=== PATIENT | female | born 1970 | race Caucasian/White ===

== ENCOUNTER 2017-12-04 09:56 | Emergency (ER) | payer SELFPAY ==
[~2017-12-04] VITALS: Ht 165.1 cm; Wt 99.3 kg
--- OUTSIDE RECORDS SUMMARY | 2017-12-04 10:03 | XMS REPORT ---
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 Problem Anxiety state, unspecified F41.1 Active 541204738 Problem Rheumatoid arthritis involving multiple sites, unspecified rheumatoid factor presence M06.9 Active 487534007 Problem Osteoarthritis, unspecified osteoarthritis type, unspecified site M19.90 Active 392945913 ALLERGIES Substance Reaction Event Type Date Status Hydrocodone-Acetaminophen nausea and vomiting Drug Allergy Nov, Active Latex itching Non Drug Allergy Nov, Active ENCOUNTERS Encounter Location Date Diagnosis [place] [address] [place] [address]658- 5477 Dec, [place] [address] [place] [id number] [place] [address] 11348- 4059 Nov, Strain of right shoulder, subsequent encounter S46.911D [place] [address] [place] [address] 51706- 4868 Oct, Right otitis media, unspecified otitis media type H66.91 [place] [address] [place] [id number] [place] [address] 02129[address] 9136 18 Oct, 2017 URI with cough and congestion J06.9 [place] [address] [place] [address] 74662- 9608 Oct, Osteoarthritis, unspecified osteoarthritis type, unspecified site M19.90 [place] [address] [address] 12 Oct, 2017 Strain of right shoulder, initial encounter S46.911A and Rheumatoid arthritis flare M06.9 [place] [address] [place] [id number] [place] [address] 98423- 3153 06 Oct, 2017 Osteoarthritis, unspecified osteoarthritis type, unspecified site M19.90 ; Peripheral edema R60.9 ; Chronic pain syndrome G89.4 and Rheumatoid arthritis involving multiple sites, unspecified rheumatoid factor presence M06.9 [place] [address] [place] [id number] [place] [address] 00781- 5661 16 Sep, 2017 Bilateral lower extremity edema R60.0 ; Osteoarthritis, unspecified osteoarthritis type, unspecified site M19.90 and Methamphetamine use disorder, 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 [place] [address] [place] [address] 32642- 6803 Sep, [facility] [address] [place] [address] Jul, Methamphetamine use disorder, 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 [facility] [address] [place] [address] Jul, [address] [address] Jul, [facility] [address] [place] [address] May, [facility] [address] [place] [address] May, Methamphetamine use disorder, moderate F15.20 and Alcohol use disorder F10.99 [facility] [address] [place] [address] May, Alcohol use disorder F10.99 and Methamphetamine use disorder, moderate F15.20 [facility] [address] [place] [address] May, Methamphetamine use disorder, moderate F15.20 and Alcohol use disorder F10.99 [facility] [address] [place] [address] Apr, Methamphetamine use disorder, moderate F15.20 and Alcohol use disorder F10.99 [place] [address] [place] [address] Apr, Methamphetamine use disorder, moderate F15.20 ; Anxiety state, unspecified F41.1 and Alcohol use disorder F10.99 [facility] [address] Apr, Alcohol use disorder F10.99 and Methamphetamine use disorder, moderate F15.20 [facility] [address] Mar, Alcohol use disorder F10.99 and Methamphetamine use disorder, moderate F15.20 [place] [address] [place] [id number] [place] [address] 2159 Mar, Methamphetamine use disorder, moderate F15.20 ; Anxiety state, unspecified F41.1 and Alcohol use disorder F10.99 [place] [address] [place] [id number] [place] [address] Mar, [place] [address] [place] [id number] [place] [address]34 Mar, [place] [address] [place] [id number] [place] [address] 135728- 2826 Apr, [place] [address] [place] [id number] [place] [address] 431 Apr, IMMUNIZATIONS No Known Immunizations SOCIAL HISTORY Never Assessed REASON FOR VISIT Pain (acute) shoulder-twooden,RMA, PT Still complaining of her right shoulder is still bothering her and it really hurts at night when she is lying down PLAN OF CARE Activity Details Follow Up prn Reason: VITAL SIGNS Height 65 in 2017-11-27 Weight 217.9 lbs 2017-11-27 Temperature 98.4 degrees Fahrenheit 2017-11-27 Heart Rate 91 bpm 2017-11-27 Respiratory Rate 20 2017-11-27 Oximetry on room air:96 % 2017-11-27 BMI 36.26 kg/m2 2017-11-27 Blood pressure systolic 130 mmHg 2017-11-27 Blood pressure diastolic 84 mmHg 2017-11-27 MEDICATIONS Medication Instructions Dosage Frequency Start Date End Date Duration Status Meloxicam 15 MG Orally Once a day 1 tablet 24h 16 Sep, 2017 11 Dec, 2018 28 days Active Remeron 15 MG Orally Once a day 1 tablet at bedtime 24h 30 day(s) Active RESULTS No Results PROCEDURES No Known procedures INSTRUCTIONS MEDICATIONS ADMINISTERED No Known Medications MEDICAL (GENERAL) HISTORY Type Description Date Medical History degenerative bone disease by Medical History Anxiety Surgical History Carpel tunnel both hands Surgical History C-sections x 4 Surgical History Hysterectomy 2009 Hospitalization History surgeries Hospitalization History Jean-Paul Dickerson drip for her back 2002
--- OUTSIDE RECORDS SUMMARY | 2017-12-04 10:03 | XMS REPORT ---
Author Author MESSI GRIMM Organization 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 Problem Anxiety state, unspecified F41.1 Active 159995173 Problem Rheumatoid arthritis involving multiple sites, unspecified rheumatoid factor presence M06.9 Active 856752386 Problem Osteoarthritis, unspecified osteoarthritis type, unspecified site M19.90 Active 055293842 ALLERGIES Substance Reaction Event Type Date Status Hydrocodone-Acetaminophen nausea and vomiting Drug Allergy Oct, Active Latex itching Non Drug Allergy Oct, Active ENCOUNTERS Encounter Location Date Diagnosis [place] [address] [place] [id number] [place] [address] 79891- 8128 Oct, Right otitis media, unspecified otitis media type H66.91 [facility] [address] [place] [id number] [place] [address] 11445- 6945 Oct, URI with cough and congestion J06.9 [facility] [address] [place] [id number] [place] [address] 63620- 8170 Oct, Osteoarthritis, unspecified osteoarthritis type, unspecified site M19.90 [facility] [address] [place] [id number] [place] [address] 66936- 6949 Oct, Strain of right shoulder, initial encounter S46.911A and Rheumatoid arthritis flare M06.9 [facility] [address] [place] [address] [id number] [place] [address] 68468- 2688 Oct, Osteoarthritis, unspecified osteoarthritis type, unspecified site M19.90 ; Peripheral edema R60.9 ; Chronic pain syndrome G89.4 and Rheumatoid arthritis involving multiple sites, unspecified rheumatoid factor presence M06.9 [place] [address] [place] [address] 35946- 4504 Sep, Bilateral lower extremity edema R60.0 ; Osteoarthritis, unspecified osteoarthritis type, unspecified site M19.90 and Methamphetamine use disorder, 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 [address]- [address]85 Sep, [facility] [address] [place] [address] Jul, Methamphetamine use disorder, 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 [facility] [address] [place] [address] Jul, [address] [address] Jul, [facility] [address] [place] [address] May, [facility] [address] [place] [address] May, Methamphetamine use disorder, moderate F15.20 and Alcohol use disorder F10.99 [facility] [address] [place] [address] May, Alcohol use disorder F10.99 and Methamphetamine use disorder, moderate F15.20 [facility] [address] [place] [address] May, Methamphetamine use disorder, moderate F15.20 and Alcohol use disorder F10.99 [facility] [address] [place] [address] Apr, Methamphetamine use disorder, moderate F15.20 and Alcohol use disorder F10.[address] 10[address]- 3170 Apr, Methamphetamine use disorder, moderate F15.20 ; Anxiety state, unspecified F41.1 and Alcohol use disorder F10.99 [facility] [address] [place] [address] Apr, Alcohol use disorder F10.99 and Methamphetamine use disorder, moderate F15.20 [facility] [address] [place] [address] Mar, Alcohol use disorder F10.99 and Methamphetamine use disorder, moderate F15.20 [facility] [address] [place], [place] [address] Mar, Methamphetamine use disorder, moderate F15.20 ; Anxiety state, unspecified F41.1 and Alcohol use disorder F10.99 [place] [address] [place] [id number] [place] [address] Mar, [place] [address] [place] [id number] [place] [address] 0809 Mar, [place] [address] [place] [id number] [place] [address] Apr, [place] [address] [place] [id number] [place] [address]- 6349 Apr, IMMUNIZATIONS No Known Immunizations SOCIAL HISTORY Never Assessed REASON FOR VISIT Sinus c/o-yaritzan,RMA, patient complains of body aching, chest congested ,runny nose, sore throat, been having sinus issues, coughing, low grade fever PLAN OF CARE Activity Details Follow Up prn Reason: VITAL SIGNS Height 65 in 2017-11-03 Weight 209.1 lbs 2017-11-03 Temperature 98.5 degrees Fahrenheit 2017-11-03 Heart Rate 80 bpm 2017-11-03 Respiratory Rate 20 2017-11-03 BMI 34.79 kg/m2 2017-11-03 Blood pressure systolic 120 mmHg 2017-11-03 Blood pressure diastolic 80 mmHg 2017-11-03 MEDICATIONS Medication Instructions Dosage Frequency Start Date End Date Duration Status Baclofen 10 mg Orally bid prn muscle spasm 1 tablet with food or milk Oct, Oct, 7 days Active ProAir HFA 108 (90 Base) MCG/ACT Inhalation every 6 hrs 2 puffs as needed 6h Oct, 28 days Active Meloxicam 15 MG Orally Once a day 1 tablet 24h Sep, Jan, 28 days Active RESULTS No Results PROCEDURES No Known procedures INSTRUCTIONS MEDICATIONS ADMINISTERED No Known Medications MEDICAL (GENERAL) HISTORY Type Description Date Medical History degenerative bone disease by Medical History Anxiety Surgical History Carpel tunnel both hands Surgical History C-sections x 4 Surgical History Hysterectomy 2010 Hospitalization History surgeries Hospitalization History Jena-Paul harris for her back 2003
--- OUTSIDE RECORDS SUMMARY | 2017-12-04 10:03 | XMS REPORT ---
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 Problem Anxiety state, unspecified F41.1 Active 119146868 Problem Rheumatoid arthritis involving multiple sites, unspecified rheumatoid factor presence M06.9 Active 277511276 Problem Osteoarthritis, unspecified osteoarthritis type, unspecified site M19.90 Active 682972712 ALLERGIES No Information ENCOUNTERS Encounter Location Date Diagnosis [place] [address] [place] [id number] [place] [address] 69836- 9780 27 Oct, 2017 Right otitis media, unspecified otitis media type H66.91 [place] [address], [place] [address] 8203 18 Oct, 2017 URI with cough and congestion J06.9 [place] [address] [place] [address] 02045- 9352 Oct, Osteoarthritis, unspecified osteoarthritis type, unspecified site M19.90 [place] [address] [place] [address] 53559- 8990 Oct, Strain of right shoulder, initial encounter S46.911A and Rheumatoid arthritis flare M06.9 [facility] [address] [place] [address] 23585- 1292 06 Oct, 2017 Osteoarthritis, unspecified osteoarthritis type, unspecified site M19.90 ; Peripheral edema R60.9 ; Chronic pain syndrome G89.4 and Rheumatoid arthritis involving multiple sites, unspecified rheumatoid factor presence M06.9 [facility] [address] [place] [id number] [place] [address] 36774- 918 Sep, Bilateral lower extremity edema R60.0 ; Osteoarthritis, unspecified osteoarthritis type, unspecified site M19.90 and Methamphetamine use disorder, 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 [facility] [address] [place] [id number] [place] [address] 07246- 0699 Sep, [facility] [address] Jul, Methamphetamine use disorder, 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 [facility] [address] [place] [address] Jul, [facility] [address] [place] 443734- 4937 Jul, [facility] [address] [place] [address] May, [facility] [address] [place] [address] May, Methamphetamine use disorder, moderate F15.20 and Alcohol use disorder F10.99 [facility] [address] [place] [address] May, Alcohol use disorder F10.99 and Methamphetamine use disorder, moderate F15.20 [facility] [address] [place] [address] May, Methamphetamine use disorder, moderate F15.20 and Alcohol use disorder F10.99 [facility] [address] [place] [address] Apr, Methamphetamine use disorder, moderate F15.20 and Alcohol use disorder F10.99 [facility] [address] [place] [id number] [place] [address] 84606- 7540 Apr, Methamphetamine use disorder, moderate F15.20 ; Anxiety state, unspecified F41.1 and Alcohol use disorder F10.99 [facility] [address] [place] [address] Apr, Alcohol use disorder F10.99 and Methamphetamine use disorder, moderate F15.20 [facility] [address] [place] [address] Mar, Alcohol use disorder F10.99 and Methamphetamine use disorder, moderate F15.20 [place] [address] [place] [address] 40709- 4196 Mar, Methamphetamine use disorder, moderate F15.20 ; Anxiety state, unspecified F41.1 and Alcohol use disorder F10.99 [place] [address] [place] [address] 30181- 9472 Mar, [place] [address] [place] [id number] [place] [address] 68264- 0873 Mar, [place] [address] [place] [id number] [place] [address] 62449- 2659 Apr, [place] [address] [place] [address] 69692- 5819 Apr, IMMUNIZATIONS No Known Immunizations SOCIAL HISTORY Never Assessed REASON FOR VISIT labs placed PLAN OF CARE VITAL SIGNS MEDICATIONS No Known Medications RESULTS No Results PROCEDURES No Known procedures INSTRUCTIONS MEDICATIONS ADMINISTERED No Known Medications MEDICAL (GENERAL) HISTORY Type Description Date Medical History degenerative bone disease by Medical History Anxiety Surgical History Carpel tunnel both hands Surgical History C-sections x 4 Surgical History Hysterectomy 2010 Hospitalization History surgeries Hospitalization History Jean-Pual Rajani Dickerson drip for her back 2002
--- OUTSIDE RECORDS SUMMARY | 2017-12-04 10:03 | XMS REPORT ---
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 Problem Anxiety state, unspecified F41.1 Active 355032234 Problem Rheumatoid arthritis involving multiple sites, unspecified rheumatoid factor presence M06.9 Active 201884422 Problem Osteoarthritis, unspecified osteoarthritis type, unspecified site M19.90 Active 651409489 ALLERGIES Substance Reaction Event Type Date Status Hydrocodone-Acetaminophen nausea and vomiting Drug Allergy Oct, Active Latex itching Non Drug Allergy Oct, Active ENCOUNTERS Encounter Location Date Diagnosis [place] [address] [place] [id number] [place] [address] 41882- 1609 Oct, Right otitis media, unspecified otitis media type H66.91 [place] [address] [place] [id number] [place] [address] 84097- 2617 Oct, URI with cough and congestion J06.9 [facility] [address] [place] [id number] [place] [address] 78436- 8106 Oct, Osteoarthritis, unspecified osteoarthritis type, unspecified site M19.90 [facility] [address] [place] [id number] [place] [address] 28122- 0541 Oct, Strain of right shoulder, initial encounter S46.911A and Rheumatoid arthritis flare M06.9 [facility] [address] [place] [id number] [place] [address] 76936- 8131 Oct, Osteoarthritis, unspecified osteoarthritis type, unspecified site M19.90 ; Peripheral edema R60.9 ; Chronic pain syndrome G89.4 and Rheumatoid arthritis involving multiple sites, unspecified rheumatoid factor presence M06.9 [place] [address] [place] [address] 19257- 0913 Sep, Bilateral lower extremity edema R60.0 ; Osteoarthritis, unspecified osteoarthritis type, unspecified site M19.90 and Methamphetamine use disorder, 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 [address]- [address]205 Sep, [facility] [address] [place] [address] Jul, Methamphetamine use disorder, 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 [facility] [address] [place] [address] Jul, [address] [address]- 6541 Jul, [facility] [address] [place] [address] May, [facility] [address] [place] [address] May, Methamphetamine use disorder, moderate F15.20 and Alcohol use disorder F10.99 [facility] [address] [place] [address] May, Alcohol use disorder F10.99 and Methamphetamine use disorder, moderate F15.20 [facility] [address] [place] [address] May, Methamphetamine use disorder, moderate F15.20 and Alcohol use disorder F10.99 [facility] [address] [place] [address] Apr, Methamphetamine use disorder, moderate F15.20 and Alcohol use disorder F10.[address] [address]- 6958 Apr, Methamphetamine use disorder, moderate F15.20 ; Anxiety state, unspecified F41.1 and Alcohol use disorder F10.99 [facility] [address] [place] [address] Apr, Alcohol use disorder F10.99 and Methamphetamine use disorder, moderate F15.20 [facility] [address] [place] [address] Mar, Alcohol use disorder F10.99 and Methamphetamine use disorder, moderate F15.20 [facility] [address] [place] [address] Mar, Methamphetamine use disorder, moderate F15.20 ; Anxiety state, unspecified F41.1 and Alcohol use disorder F10.99 [facility] [address] [place] [id number] [place] [address] Mar, [place] [address] [place] [id number] [place] [address] 5559 Mar, [place] [address] [place] [id number] [place] [address] Apr, [place] [address] [place] [id number] [place] [address] 3428 Apr, IMMUNIZATIONS No Known Immunizations SOCIAL HISTORY Never Assessed REASON FOR VISIT Leg Swelling-JACQUES dempsey, both legs are hurting and swollen, lower back is hurtuing as well PLAN OF CARE Activity Details Follow Up prn Reason: VITAL SIGNS Height 65 in 2017-10-22 Weight 209.5 lbs 2017-10-22 Temperature 98.5 degrees Fahrenheit 2017-10-22 Heart Rate 85 bpm 2017-10-22 Respiratory Rate 20 2017-10-22 BMI 34.86 kg/m2 2017-10-22 Blood pressure systolic 110 mmHg 2017-10-22 Blood pressure diastolic 74 mmHg 2017-10-22 MEDICATIONS Medication Instructions Dosage Frequency Start Date End Date Duration Status Meloxicam 7.5 MG Orally Once a day 2 tablets 24h Sep, Active RESULTS No Results PROCEDURES Procedure Date Ordered Result Body Site RHEUMATOID FACTOR, QUANT Oct 22, 2017 VENIPUNCT, ROUTINE* Oct 22, 2017 CCP ANTIBODY Oct 22, 2017 INSTRUCTIONS MEDICATIONS ADMINISTERED No Known Medications MEDICAL (GENERAL) HISTORY Type Description Date Medical History degenerative bone disease by Medical History Anxiety Surgical History Carpel tunnel both hands Surgical History C-sections x 4 Surgical History Hysterectomy 2010 Hospitalization History surgeries Hospitalization History Jean-Paul Dickerson drip for her back 2002
--- OUTSIDE RECORDS SUMMARY | 2017-12-04 10:03 | XMS REPORT ---
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 Problem Anxiety state, unspecified F41.1 Active 348798141 Problem Rheumatoid arthritis involving multiple sites, unspecified rheumatoid factor presence M06.9 Active 814033483 Problem Osteoarthritis, unspecified osteoarthritis type, unspecified site M19.90 Active 998070120 ALLERGIES Substance Reaction Event Type Date Status Hydrocodone-Acetaminophen nausea and vomiting Drug Allergy Oct, Active Latex itching Non Drug Allergy Oct, Active ENCOUNTERS Encounter Location Date Diagnosis [place] [id number] [place] [id number] [place] [address] Oct, Right otitis media, unspecified otitis media type H66.91 [place] [address] [place] [address] [id number] [place] [address] Oct, URI with cough and congestion J06.9 [facility] [id number] [place] [address] Oct, Osteoarthritis, unspecified osteoarthritis type, unspecified site M19.90 [facility] [id number] [place] [address] Oct, Strain of right shoulder, initial encounter S46.911A and Rheumatoid arthritis flare M06.9 [facility] [id number] [place] [address] Oct, Osteoarthritis, unspecified osteoarthritis type, unspecified site M19.90 ; Peripheral edema R60.9 ; Chronic pain syndrome G89.4 and Rheumatoid arthritis involving multiple sites, unspecified rheumatoid factor presence M06.9 [place] [id number] [place] [address] Sep, Bilateral lower extremity edema R60.0 ; Osteoarthritis, unspecified osteoarthritis type, unspecified site M19.90 and Methamphetamine use disorder, 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 [address] Sep, [facility] [address] [place] [address] Jul, Methamphetamine use disorder, 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 [facility] [address] [place] [address] Jul, [address] [address] Jul, [facility] [address] [place] [address] May, [facility] [address] [place] [address] May, Methamphetamine use disorder, moderate F15.20 and Alcohol use disorder F10.99 [facility] [address] [place] [address] May, Alcohol use disorder F10.99 and Methamphetamine use disorder, moderate F15.20 [facility] [address] [place] [address] May, Methamphetamine use disorder, moderate F15.20 and Alcohol use disorder F10.99 [facility] [address] [place] [address] Apr, Methamphetamine use disorder, moderate F15.20 and Alcohol use disorder F10.[address] [address] Apr, Methamphetamine use disorder, moderate F15.20 ; Anxiety state, unspecified F41.1 and Alcohol use disorder F10.99 [facility] [address] [place] [address] Apr, Alcohol use disorder F10.99 and Methamphetamine use disorder, moderate F15.20 [facility] [address] [place] [address] Mar, Alcohol use disorder F10.99 and Methamphetamine use disorder, moderate F15.20 [place] [address] [place] [id number] Mar, Methamphetamine use disorder, moderate F15.20 ; Anxiety state, unspecified F41.1 and Alcohol use disorder F10.99 [place] [id number] [place] [address] Mar, [place] [id number] [place], [place] [address] Mar, [place] [address] [id number] [place] [phone] Apr, [place] [address] [place] [address] [id number] [place] [address] Apr, IMMUNIZATIONS Vaccine Route Administration Date Status DEXAMETHASONE 4MG/ML (PER 1 MG) IM Intramuscular Oct 28, 2017 Administered DEPO MEDROL 40 MG/ML IM Intramuscular Oct 28, 2017 Administered SOCIAL HISTORY Never Assessed REASON FOR VISIT Shoulder pain-KITA dempsey, patient was trying to get up on a concrete wall and hurt her shoulder and she also states that her shoulder and hand is swollen on her right right side hurts to move. happened yesterday PLAN OF CARE Activity Details Follow Up prn Reason: VITAL SIGNS Height 65 in 2017-10-28 Weight 216.0 lbs 2017-10-28 Temperature 98.3 degrees Fahrenheit 2017-10-28 Heart Rate 63 bpm 2017-10-28 Respiratory Rate 20 2017-10-28 Oximetry on room air:96 % 2017-10-28 BMI 35.94 kg/m2 2017-10-28 Blood pressure systolic 130 mmHg 2017-10-28 Blood pressure diastolic 82 mmHg 2017-10-28 MEDICATIONS Medication Instructions Dosage Frequency Start Date End Date Duration Status Meloxicam 7.5 MG Orally Once a day 2 tablets 24h Sep, Active Baclofen 10 mg Orally bid prn muscle spasm 1 tablet with food or milk Oct, Oct, 7 days Active RESULTS No Results PROCEDURES Procedure Date Ordered Result Body Site DEPO MEDROL 40 MG/ML Oct 28, 2017 DEXAMETHASONE 4MG/ML (PER 1 MG) Oct 28, 2017 THER/PROPH/DIAG INJ, SC/IM Oct 28, 2017 INSTRUCTIONS MEDICATIONS ADMINISTERED No Known Medications MEDICAL (GENERAL) HISTORY Type Description Date Medical History degenerative bone disease by Medical History Anxiety Surgical History Carpel tunnel both hands Surgical History C-sections x 4 Surgical History Hysterectomy 2010 Hospitalization History surgeries Hospitalization History Jean-Paul Dickerson drip for her back 2003
--- OUTSIDE RECORDS SUMMARY | 2017-12-04 10:03 | XMS REPORT ---
Author MESSI [facility] Address [address] [place] [address] Care Team Providers Care Stitching Machine Feeder Or Offbearer Name Role Phone MESSI GRIMM Unavailable PROBLEMS ALLERGIES ENCOUNTERS IMMUNIZATIONS No Known Immunizations SOCIAL HISTORY No smoking Hx information available REASON FOR VISIT PLAN OF CARE VITAL SIGNS MEDICATIONS RESULTS No Results PROCEDURES No Known procedures INSTRUCTIONS MEDICATIONS ADMINISTERED No Known Medications MEDICAL (GENERAL) HISTORY
--- OUTSIDE RECORDS SUMMARY | 2017-12-04 10:04 | XMS REPORT ---
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 Problem Anxiety state, unspecified F41.1 Active 618138614 Problem Alcohol use disorder F10.99 Active 18316617 ALLERGIES No Information ENCOUNTERS Encounter Location Date Diagnosis [facility] [address] [place] [address] Sep, Bilateral lower extremity edema R60.0 ; Osteoarthritis, unspecified osteoarthritis type, unspecified site M19.90 and Methamphetamine use disorder, 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 [facility] [address] [address] Sep, [facility] [address] [place] [address] Jul, Methamphetamine use disorder, 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 [facility] [address] [place] [address] Jul, [facility] [address] [address] Jul, [facility] [address] [place] [address] May, [facility] [address] [place] [address] May, Methamphetamine use disorder, moderate F15.20 and Alcohol use disorder F10.99 [facility] [address] [place] [address] May, Alcohol use disorder F10.99 and Methamphetamine use disorder, moderate F15.20 [facility] [address] May, Methamphetamine use disorder, moderate F15.20 and Alcohol use disorder F10.99 [facility] [address] Apr, Methamphetamine use disorder, moderate F15.20 and Alcohol use disorder F10.99 [facility] [address] [place] [id number] [place] [address] 8[address] Apr, Methamphetamine use disorder, moderate F15.20 ; Anxiety state, unspecified F41.1 and Alcohol use disorder F10.99 [facility] [address] Apr, Alcohol use disorder F10.99 and Methamphetamine use disorder, moderate F15.20 [facility] [address] Mar, Alcohol use disorder F10.99 and Methamphetamine use disorder, moderate F15.20 [place] [address] [id number] [place] [address] 419 Mar, Methamphetamine use disorder, moderate F15.20 ; Anxiety state, unspecified F41.1 and Alcohol use disorder F10.99 [facility] [address] [place] [id number] [place] [address] 124 Mar, [facility] [id number] [place], [place] [address]43 Mar, [place] [address] [id number] [place] [address] Apr, [place] [address] 424 Apr, IMMUNIZATIONS No Known Immunizations SOCIAL HISTORY Never Assessed REASON FOR VISIT [facility] PLAN OF CARE Activity Details Follow Up no f/u, inpatient tx recommended, see notes above Reason: VITAL SIGNS MEDICATIONS No Known Medications RESULTS No Results PROCEDURES Procedure Date Ordered Result Body Site Psych diagnostic evaluation, new patient August 11, 2017 INSTRUCTIONS MEDICATIONS ADMINISTERED No Known Medications MEDICAL (GENERAL) HISTORY Type Description Date Medical History degenerative bone disease by Medical History Anxiety Surgical History Carpel tunnel both hands Surgical History C-sections x 4 Surgical History Hysterectomy 2010 Hospitalization History surgeries Hospitalization History Jean-Paul Dickerson drip for her back 2003
--- OUTSIDE RECORDS SUMMARY | 2017-12-04 10:04 | XMS REPORT ---
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 Problem Anxiety state, unspecified F41.1 Active 167859177 Problem Alcohol use disorder F10.99 Active 81569292 ALLERGIES No Information ENCOUNTERS Encounter Location Date Diagnosis [facility] [address] [place] [address] Jul, Methamphetamine use disorder, 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 [facility] [address] [place] [address] Jul, [facility] [address] [place] [id number] [place] [address]- [address] Jul, [facility] [address] [place] [address] May, [facility] [address] [place] [address] May, Methamphetamine use disorder, moderate F15.20 and Alcohol use disorder F10.99 [facility] [address] [place] [address] May, Alcohol use disorder F10.99 and Methamphetamine use disorder, moderate F15.20 [facility] [address] [place] [address] May, Methamphetamine use disorder, moderate F15.20 and Alcohol use disorder F10.99 [facility] [address] [place] [address] Apr, Methamphetamine use disorder, moderate F15.20 and Alcohol use disorder F10.99 [facility] [address] [place], [place] [address] [place] [address]- [address] Apr, Methamphetamine use disorder, moderate F15.20 ; Anxiety state, unspecified F41.1 and Alcohol use disorder F10.99 [facility] [address] [place] [address] Apr, Alcohol use disorder F10.99 and Methamphetamine use disorder, moderate F15.20 [facility] [address] [place] [address] Mar, Alcohol use disorder F10.99 and Methamphetamine use disorder, moderate F15.20 [place] [address] [id number] [place] [address] Mar, Methamphetamine use disorder, moderate F15.20 ; Anxiety state, unspecified F41.1 and Alcohol use disorder F10.99 [place] [id number] [place], [place] [address] Mar, [place] [id number] [place] [address] Mar, [place] [address] [id number] [place] [address] Apr, [place] [address] [id number] [place] [address]- [address] Apr, IMMUNIZATIONS No Known Immunizations SOCIAL HISTORY Never Assessed REASON FOR VISIT f/u PLAN OF CARE Activity Details Follow Up prn Reason: VITAL SIGNS MEDICATIONS Unknown Medications RESULTS No Results PROCEDURES Procedure Date Ordered Result Body Site Psychotherapy, patient &/family, 30 minutes, established patient May 11, 2017 INSTRUCTIONS MEDICATIONS ADMINISTERED No Known Medications
--- OUTSIDE RECORDS SUMMARY | 2017-12-04 10:04 | XMS REPORT ---
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 Problem Anxiety state, unspecified F41.1 Active 396377170 Problem Alcohol use disorder F10.99 Active 99768628 ALLERGIES No Information ENCOUNTERS Encounter Location Date Diagnosis [facility] [address] [place] [address] Sep, Bilateral lower extremity edema R60.0 ; Osteoarthritis, unspecified osteoarthritis type, unspecified site M19.90 and Methamphetamine use disorder, 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 [facility] [address] [address] Sep, [facility] [address] [place] [address] Jul, Methamphetamine use disorder, 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 [facility] [address] [place] [address] Jul, [facility] [address] [address] Jul, [facility] [address] [place] [address] May, [facility] [address] [place] [address] May, Methamphetamine use disorder, moderate F15.20 and Alcohol use disorder F10.99 [facility] [address] [place] [address] May, Alcohol use disorder F10.99 and Methamphetamine use disorder, moderate F15.20 [facility] [address] May, Methamphetamine use disorder, moderate F15.20 and Alcohol use disorder F10.99 [facility] [address] Apr, Methamphetamine use disorder, moderate F15.20 and Alcohol use disorder F10.99 [facility] [address] [place] [id number] [place] [address] 935 Apr, Methamphetamine use disorder, moderate F15.20 ; Anxiety state, unspecified F41.1 and Alcohol use disorder F10.99 [facility] [address] Apr, Alcohol use disorder F10.99 and Methamphetamine use disorder, moderate F15.20 [facility] [address] Mar, Alcohol use disorder F10.99 and Methamphetamine use disorder, moderate F15.20 [place] [address] 061 Mar, Methamphetamine use disorder, moderate F15.20 ; Anxiety state, unspecified F41.1 and Alcohol use disorder F10.99 [place] [address] [place] [id number] [place] [address] 921 Mar, [facility] [address] [place] [id number] [place] [address] 624 Mar, [place] [address] [place] [address] [id number] [place] [address] 470 Apr, [place] [address] 458 Apr, IMMUNIZATIONS No Known Immunizations SOCIAL HISTORY Never Assessed REASON FOR VISIT former client seeking Tx PLAN OF CARE VITAL SIGNS MEDICATIONS No Known Medications RESULTS No Results PROCEDURES No Known procedures INSTRUCTIONS MEDICATIONS ADMINISTERED No Known Medications MEDICAL (GENERAL) HISTORY Type Description Date Medical History degenerative bone disease by Medical History Anxiety Surgical History Carpel tunnel both hands Surgical History C-sections x 4 Surgical History Hysterectomy 2009 Hospitalization History surgeries Hospitalization History Jeong Rajani Dickerson drip for her back 2002
--- OUTSIDE RECORDS SUMMARY | 2017-12-04 10:04 | XMS REPORT ---
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 Problem Anxiety state, unspecified F41.1 Active 368460248 Problem Rheumatoid arthritis involving multiple sites, unspecified rheumatoid factor presence M06.9 Active 195813102 Problem Osteoarthritis, unspecified osteoarthritis type, unspecified site M19.90 Active 103907396 ALLERGIES No Information ENCOUNTERS Encounter Location Date Diagnosis [place] [id number] [place] [address] Oct, Osteoarthritis, unspecified osteoarthritis type, unspecified site M19.90 [place] [id number] [place] [address]- [address] Oct, Strain of right shoulder, initial encounter S46.911A and Rheumatoid arthritis flare M06.9 [place] [id number] [place] [address]- 1972 Oct, Osteoarthritis, unspecified osteoarthritis type, unspecified site M19.90 ; Peripheral edema R60.9 ; Chronic pain syndrome G89.4 and Rheumatoid arthritis involving multiple sites, unspecified rheumatoid factor presence M06.9 [place] [id number] [place] [address]- 1967 Sep, Bilateral lower extremity edema R60.0 ; Osteoarthritis, unspecified osteoarthritis type, unspecified site M19.90 and Methamphetamine use disorder, 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 [place] [address] [address] Sep, [facility] [address] [place] [address] Jul, Methamphetamine use disorder, 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 [facility] [address] [place] [address] Jul, [facility] [address] [place] [id number] [place] [address] Jul, [facility] [address] [place] [address] May, [facility] [address] [place] [address] May, Methamphetamine use disorder, moderate F15.20 and Alcohol use disorder F10.99 [facility] [address] [place] [address] May, Alcohol use disorder F10.99 and Methamphetamine use disorder, moderate F15.20 [facility] [address] [place] [address] May, Methamphetamine use disorder, moderate F15.20 and Alcohol use disorder F10.99 [facility] [address] [place] [address] Apr, Methamphetamine use disorder, moderate F15.20 and Alcohol use disorder F10.99 [place] [id number] [place] [address] Apr, Methamphetamine use disorder, moderate F15.20 ; Anxiety state, unspecified F41.1 and Alcohol use disorder F10.99 [facility] [address] [place] [address] Apr, Alcohol use disorder F10.99 and Methamphetamine use disorder, moderate F15.20 [facility] [address] [place] [address] Mar, Alcohol use disorder F10.99 and Methamphetamine use disorder, moderate F15.20 [facility] [address] [place] [address] [place] [address] Mar, Methamphetamine use disorder, moderate F15.20 ; Anxiety state, unspecified F41.1 and Alcohol use disorder F10.99 [place] [address] [facility] [id number] [place] [address] Mar, [facility] [address] [facility] [id number] Mar, [facility] [address] [facility] [id number] [address] Apr, [facility] [address] [facility] [id number] [address] Apr, IMMUNIZATIONS No Known Immunizations SOCIAL HISTORY Never Assessed REASON FOR VISIT Requests return call PLAN OF CARE VITAL SIGNS MEDICATIONS Unknown Medications RESULTS No Results PROCEDURES No Known procedures INSTRUCTIONS MEDICATIONS ADMINISTERED No Known Medications MEDICAL (GENERAL) HISTORY Type Description Date Medical History degenerative bone disease by Medical History Anxiety Surgical History Carpel tunnel both hands Surgical History C-sections x 4 Surgical History Hysterectomy 2010 Hospitalization History surgeries Hospitalization History Jean-Paul harris for her back 2002
--- OUTSIDE RECORDS SUMMARY | 2017-12-04 10:04 | XMS REPORT ---
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 Problem Anxiety state, unspecified F41.1 Active 652862686 Problem Alcohol use disorder F10.99 Active 39154397 ALLERGIES No Information ENCOUNTERS Encounter Location Date Diagnosis [facility] [address] [place] [address] Sep, Bilateral lower extremity edema R60.0 ; Osteoarthritis, unspecified osteoarthritis type, unspecified site M19.90 and Methamphetamine use disorder, 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 [facility] [address] [address] Sep, [facility] [address] [place] [address] Jul, Methamphetamine use disorder, 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 [facility] [address] [place] [address] Jul, [facility] [address] [address] Jul, [facility] [address] [place] [address] May, [facility] [address] [place] [address] May, Methamphetamine use disorder, moderate F15.20 and Alcohol use disorder F10.99 [facility] [address] [place] [address] May, Alcohol use disorder F10.99 and Methamphetamine use disorder, moderate F15.20 [facility] [address] May, Methamphetamine use disorder, moderate F15.20 and Alcohol use disorder F10.99 [facility] [address] Apr, Methamphetamine use disorder, moderate F15.20 and Alcohol use disorder F10.99 [facility] [id number] [place] [address] Apr, Methamphetamine use disorder, moderate F15.20 ; Anxiety state, unspecified F41.1 and Alcohol use disorder F10.99 [facility] [address] Apr, Alcohol use disorder F10.99 and Methamphetamine use disorder, moderate F15.20 [facility] [address] Mar, Alcohol use disorder F10.99 and Methamphetamine use disorder, moderate F15.20 [place] [id number] [place] [address] 953 Mar, Methamphetamine use disorder, moderate F15.20 ; Anxiety state, unspecified F41.1 and Alcohol use disorder F10.99 [place] [id number] [place] [address] 377 Mar, [facility] [id number] [place] [address] 932 Mar, [place] [id number] [place] [address] 149 Apr, [place] [address] 933 Apr, IMMUNIZATIONS No Known Immunizations SOCIAL HISTORY Never Assessed REASON FOR VISIT Requests return call PLAN OF CARE VITAL SIGNS MEDICATIONS No [...]
--- OUTSIDE RECORDS SUMMARY | 2017-12-04 10:04 | XMS REPORT ---
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 Problem Anxiety state, unspecified F41.1 Active 345070340 Problem Rheumatoid arthritis involving multiple sites, unspecified rheumatoid factor presence M06.9 Active 565956851 Problem Osteoarthritis, unspecified osteoarthritis type, unspecified site M19.90 Active 159186088 ALLERGIES Substance Reaction Event Type Date Status Hydrocodone-Acetaminophen nausea and vomiting Drug Allergy Sep, Active Latex itching Non Drug Allergy Sep, Active ENCOUNTERS Encounter Location Date Diagnosis [facility] [id number] [place] [address] Oct, URI with cough and congestion J06.9 [place] [id number] [place] [address] Oct, Osteoarthritis, unspecified osteoarthritis type, unspecified site M19.90 [facility] [id number] [place] [address] 8[address]- [address] Oct, Strain of right shoulder, initial encounter S46.911A and Rheumatoid arthritis flare M06.9 [facility] [id number] [place] [address]- [address] Oct, Osteoarthritis, unspecified osteoarthritis type, unspecified site M19.90 ; Peripheral edema R60.9 ; Chronic pain syndrome G89.4 and Rheumatoid arthritis involving multiple sites, unspecified rheumatoid factor presence M06.9 [facility] [address] [place] [address] Sep, Bilateral lower extremity edema R60.0 ; Osteoarthritis, unspecified osteoarthritis type, unspecified site M19.90 and Methamphetamine use disorder, 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 [facility] [id number] [place] [address] Sep, [facility] [address] [place] [address] Jul, Methamphetamine use disorder, 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 [facility] [address] [place] [address] Jul, [facility] [address] [address] Jul, [facility] [address] [place] [address] May, [facility] [address] [place] [address] May, Methamphetamine use disorder, moderate F15.20 and Alcohol use disorder F10.99 [facility] [address] [place] [address] May, Alcohol use disorder F10.99 and Methamphetamine use disorder, moderate F15.20 [facility] [address] [place] [address] May, Methamphetamine use disorder, moderate F15.20 and Alcohol use disorder F10.99 [facility] [address] [place] [address] Apr, Methamphetamine use disorder, moderate F15.20 and Alcohol use disorder F10.99 [facility] [id number] [place] [address] Apr, Methamphetamine use disorder, moderate F15.20 ; Anxiety state, unspecified F41.1 and Alcohol use disorder F10.99 [facility] [address] [place] [address] Apr, Alcohol use disorder F10.99 and Methamphetamine use disorder, moderate F15.20 [facility] [address] [place] [address] Mar, Alcohol use disorder F10.99 and Methamphetamine use disorder, moderate F15.20 [facility] [id number] [address] Mar, Methamphetamine use disorder, moderate F15.20 ; Anxiety state, unspecified F41.1 and Alcohol use disorder F10.99 [facility] [address] [address] Mar, [facility] [address] [place] [address] Mar, [place] [address] [place] [address] Apr, [place] [address] [place] [address] Apr, IMMUNIZATIONS No Known Immunizations SOCIAL HISTORY Never Assessed REASON FOR VISIT Swelling ankles, PT reports the swelling has been happening for a week now with her feet and ankles. PT notes she has cut back on salt but does not seem to help -Viraj HANNA , PT reports she is in [facility] program right now and is unable to take percocet or any narcotics for her pain with her back/discomfort. PT wants to see if there is anything she can take right now to help get her through- Sergio HANNA, PT discusses her neck has been hurting since her almost broke it in July, PT pplans on staying in the women house -Viraj HANNA PLAN OF CARE Activity Details Follow Up prn Reason: VITAL SIGNS Height 65 in 2017-10-01 Weight 209 lbs 2017-10-01 Temperature 98.0 degrees Fahrenheit 2017-10-01 Heart Rate 78 bpm 2017-10-01 Respiratory Rate 20 2017-10-01 BMI 34.78 kg/m2 2017-10-01 Blood pressure systolic 122 mmHg 2017-10-01 Blood pressure diastolic 68 mmHg 2017-10-01 MEDICATIONS Medication Instructions Dosage Frequency Start Date End Date Duration Status Meloxicam 7.5 MG Orally Once a day 1 tablet 24h Sep, Nov, 30 day(s) Active RESULTS No Results PROCEDURES Procedure Date Ordered Result Body Site COMPLETE CBC W/AUTO DIFF WBC Oct 01, 2017 ASSAY OF FREE THYROXINE Oct 01, 2017 ASSAY THYROID STIM HORMONE Oct 01, 2017 VENIPUNCT, ROUTINE* Oct 01, 2017 INSTRUCTIONS MEDICATIONS ADMINISTERED No Known Medications MEDICAL (GENERAL) HISTORY Type Description Date Medical History degenerative bone disease by Medical History Anxiety Surgical History Carpel tunnel both hands Surgical History C-sections x 4 Surgical History Hysterectomy 2010 Hospitalization History surgeries Hospitalization History Jean-Paul harris for her back 2003
--- OUTSIDE RECORDS SUMMARY | 2017-12-04 10:04 | XMS REPORT ---
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 Problem Anxiety state, unspecified F41.1 Active 942498862 Problem Alcohol use disorder F10.99 Active 33065558 ALLERGIES No Information ENCOUNTERS Encounter Location Date Diagnosis [facility] [address] [place] [address] Jul, Methamphetamine use disorder, 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 [facility] [address] [place] [address] Jul, [facility] [address] [place] [id number] [place] [address] Jul, [facility] [address] [place] [address] May, [facility] [address] [place] [address] May, Methamphetamine use disorder, moderate F15.20 and Alcohol use disorder F10.99 [facility] [address] [place] [address] May, Alcohol use disorder F10.99 and Methamphetamine use disorder, moderate F15.20 [facility] [address] [place] [address] May, Methamphetamine use disorder, moderate F15.20 and Alcohol use disorder F10.99 [facility] [address] [place] [address] Apr, Methamphetamine use disorder, moderate F15.20 and Alcohol use disorder F10.99 [facility] [address] [place] [address] Apr, Methamphetamine use disorder, moderate F15.20 ; Anxiety state, unspecified F41.1 and Alcohol use disorder F10.99 [facility] [address] [place] [address] Apr, Alcohol use disorder F10.99 and Methamphetamine use disorder, moderate F15.20 [facility] [address] [address] Mar, Alcohol use disorder F10.99 and Methamphetamine use disorder, moderate F15.20 [place] [id number] [place] [address] Mar, Methamphetamine use disorder, moderate F15.20 ; Anxiety state, unspecified F41.1 and Alcohol use disorder F10.99 [place] [id number] [place] [address] Mar, [place] [id number] [place] [address] Mar, [place] [id number] [place] [address] Apr, [place] [id number] [place] [address] Apr, IMMUNIZATIONS No Known Immunizations SOCIAL HISTORY Never Assessed REASON FOR VISIT Discharge PLAN OF CARE Activity Details Follow Up No followup, Pt discharged Reason: VITAL SIGNS MEDICATIONS Unknown Medications RESULTS No Results PROCEDURES Procedure Date Ordered Result Body Site Psychotherapy, patient &/family, 30 minutes, established patient June 02, 2017 INSTRUCTIONS MEDICATIONS ADMINISTERED No Known Medications
--- OUTSIDE RECORDS SUMMARY | 2017-12-04 10:04 | XMS REPORT ---
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 [facility] [address] [place] [address] Jul, [facility] [address] [place] [id number] [place] [address] Jul, [facility] [address] [place] [address] May, [facility] [address] [place] [address] May, Methamphetamine use disorder, moderate F15.20 and Alcohol use disorder F10.99 [facility] [address] [place] [address] May, Alcohol use disorder F10.99 and Methamphetamine use disorder, moderate F15.20 [facility] [address] [place] [address] May, Methamphetamine use disorder, moderate F15.20 and Alcohol use disorder F10.99 [facility] [address] [place] [address] Apr, Methamphetamine use disorder, moderate F15.20 and Alcohol use disorder F10.99 [facility] [address] [place] [address] Apr, Methamphetamine use disorder, moderate F15.20 ; Anxiety state, unspecified F41.1 and Alcohol use disorder F10.99 [facility] [address] [address] Apr, Alcohol use disorder F10.99 and Methamphetamine use disorder, moderate F15.20 [facility] [address] [address] Mar, Alcohol use disorder F10.99 and Methamphetamine use disorder, moderate F15.20 [place] [id number] [place] [address] Mar, Methamphetamine use disorder, moderate F15.20 ; Anxiety state, unspecified F41.1 and Alcohol use disorder F10.99 [place] [id number] [place] [address] Mar, [place] [id number] [place] [address] Mar, [place] [id number] [place] [address] Apr, [place] [id number] [place] [address] Apr, IMMUNIZATIONS No Known Immunizations SOCIAL HISTORY Never Assessed REASON FOR VISIT Pt. discharge, arnie to [facility] PLAN OF CARE VITAL SIGNS MEDICATIONS Unknown Medications RESULTS No Results PROCEDURES No Known procedures INSTRUCTIONS MEDICATIONS ADMINISTERED No Known Medications
--- OUTSIDE RECORDS SUMMARY | 2017-12-04 10:04 | XMS REPORT ---
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 Problem Anxiety state, unspecified F41.1 Active 718852642 Problem Alcohol use disorder F10.99 Active 08834395 ALLERGIES No Information ENCOUNTERS Encounter Location Date Diagnosis [facility] [address] [place] [address] Jul, Methamphetamine use disorder, 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 [facility] [address] [place] [address] Jul, [facility] [address] [place] [id number] [place] [address] Jul, [facility] [address] [place] [address] May, [facility] [address] [place] [address] May, Methamphetamine use disorder, moderate F15.20 and Alcohol use disorder F10.99 [facility] [address] [place] [address] May, Alcohol use disorder F10.99 and Methamphetamine use disorder, moderate F15.20 [facility] [address] [place] [address] May, Methamphetamine use disorder, moderate F15.20 and Alcohol use disorder F10.99 [facility] [address] [place] [address] Apr, Methamphetamine use disorder, moderate F15.20 and Alcohol use disorder F10.99 [facility] [address] [place] [address]- [address] Apr, Methamphetamine use disorder, moderate F15.20 ; Anxiety state, unspecified F41.1 and Alcohol use disorder F10.99 [facility] [address] [place] [address] Apr, Alcohol use disorder F10.99 and Methamphetamine use disorder, moderate F15.20 [facility] [address] [place] [address] [address] Mar, Alcohol use disorder F10.99 and Methamphetamine use disorder, moderate F15.20 [place] [id number] [place] [address] Mar, Methamphetamine use disorder, moderate F15.20 ; Anxiety state, unspecified F41.1 and Alcohol use disorder F10.99 [place] [id number] [place] [address] Mar, [place] [id number] [place], [place] [address] Mar, [place] [id number] [place] [address] Apr, [place] [id number] [place] [address] Apr, IMMUNIZATIONS No Known Immunizations SOCIAL HISTORY Never Assessed REASON FOR VISIT SUBAB-F/U PLAN OF CARE Activity Details Follow Up 1 Week Reason: VITAL SIGNS MEDICATIONS Unknown Medications RESULTS No Results PROCEDURES Procedure Date Ordered Result Body Site Psychotherapy, patient &/family, 30 minutes, established patient May 26, 2017 INSTRUCTIONS MEDICATIONS ADMINISTERED No Known Medications
--- OUTSIDE RECORDS SUMMARY | 2017-12-04 10:04 | XMS REPORT ---
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 Problem Anxiety state, unspecified F41.1 Active 844326280 Problem Alcohol use disorder F10.99 Active 89698223 ALLERGIES No Information ENCOUNTERS Encounter Location Date Diagnosis [facility] [address] [place] [address] Jul, Methamphetamine use disorder, 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 [facility] [address] [place] [address] Jul, [facility] [address] [place] [id number] [place] [address] Jul, [facility] [address] [place] [address] May, [facility] [address] [place] [address] May, Methamphetamine use disorder, moderate F15.20 and Alcohol use disorder F10.99 [facility] [address] [place] [address] May, Alcohol use disorder F10.99 and Methamphetamine use disorder, moderate F15.20 [facility] [address] [place] [address] May, Methamphetamine use disorder, moderate F15.20 and Alcohol use disorder F10.99 [facility] [address] [place] [address] Apr, Methamphetamine use disorder, moderate F15.20 and Alcohol use disorder F10.99 [facility] [address] [place] [address]- [address] Apr, Methamphetamine use disorder, moderate F15.20 ; Anxiety state, unspecified F41.1 and Alcohol use disorder F10.99 [facility] [address] [place] [address] Apr, Alcohol use disorder F10.99 and Methamphetamine use disorder, moderate F15.20 [facility] [address] [address] Mar, Alcohol use disorder F10.99 and Methamphetamine use disorder, moderate F15.20 [place] [id number] [place] [address] Mar, Methamphetamine use disorder, moderate F15.20 ; Anxiety state, unspecified F41.1 and Alcohol use disorder F10.99 [place] [id number] [place] [address] Mar, [place] [address] [id number] [place] [address] Mar, [place] [address] [id number] [place] Apr, [place] [id number] [place] [address] Apr, IMMUNIZATIONS No Known Immunizations SOCIAL HISTORY Never Assessed REASON FOR VISIT SUBAB-F/U PLAN OF CARE Activity Details Follow Up 1 Week Reason: VITAL SIGNS MEDICATIONS Unknown Medications RESULTS No Results PROCEDURES Procedure Date Ordered Result Body Site Psychotherapy, patient &/family, 30 minutes, established patient May 19, 2017 INSTRUCTIONS MEDICATIONS ADMINISTERED No Known Medications
--- OUTSIDE RECORDS SUMMARY | 2017-12-04 10:05 | XMS REPORT ---
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 Problem Anxiety state, unspecified F41.1 Active 770404475 Problem Alcohol use disorder F10.99 Active 03399388 ALLERGIES No Information ENCOUNTERS Encounter Location Date Diagnosis [facility] [address] [place] [address] Jul, Methamphetamine use disorder, 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 [facility] [address] [place] [address] Jul, [facility] [place] [address] [place], [place] [id number] [place] [address] Jul, [facility] [address] [place] [address] May, [facility] [address] [place] [address] May, Methamphetamine use disorder, moderate F15.20 and Alcohol use disorder F10.99 [facility] [address] [place] [address] May, Alcohol use disorder F10.99 and Methamphetamine use disorder, moderate F15.20 [facility] [address] [place] [address] May, Methamphetamine use disorder, moderate F15.20 and Alcohol use disorder F10.99 [facility] [address] [place] [address] Apr, Methamphetamine use disorder, moderate F15.20 and Alcohol use disorder F10.99 [facility] [id number] [place] [address] Apr, Methamphetamine use disorder, moderate F15.20 ; Anxiety state, unspecified F41.1 and Alcohol use disorder F10.99 [facility] [address] [place] [address] Apr, Alcohol use disorder F10.99 and Methamphetamine use disorder, moderate F15.20 [facility] [address] [place] [address] Mar, Alcohol use disorder F10.99 and Methamphetamine use disorder, moderate F15.20 [place] [address] [place] [phone] [place], [place] [address] Mar, Methamphetamine use disorder, moderate F15.20 ; Anxiety state, unspecified F41.1 and Alcohol use disorder F10.99 [place] [address] [place] [phone] [place] [address] Mar, [place] [address] [place] [id number] [place] [phone] Mar, [place] [address] [place] [phone] [place] [phone] Apr, [place] [address] [place] [id number] [place] [address] Apr, IMMUNIZATIONS No Known Immunizations SOCIAL HISTORY Never Assessed REASON FOR VISIT [place] Plan PLAN OF CARE Activity Details Follow Up 1 Week Reason: VITAL SIGNS MEDICATIONS Unknown Medications RESULTS No Results PROCEDURES Procedure Date Ordered Result Body Site Psychotherapy, patient &/family, 30 minutes, established patient May 11, 2017 INSTRUCTIONS MEDICATIONS ADMINISTERED No Known Medications
--- OUTSIDE RECORDS SUMMARY | 2017-12-04 10:05 | XMS REPORT ---
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 [address] [place] [id number] [place] [address] Jul, [facility] [address] [place] [address] May, [facility] [address] [place] [address] May, Methamphetamine use disorder, moderate F15.20 and Alcohol use disorder F10.99 [facility] [address] [place] [address] May, Alcohol use disorder F10.99 and Methamphetamine use disorder, moderate F15.20 [facility] [address] [place] [address] May, Methamphetamine use disorder, moderate F15.20 and Alcohol use disorder F10.99 [facility] [address] [place] [address] Apr, Methamphetamine use disorder, moderate F15.20 and Alcohol use disorder F10.99 [facility] [address] [place] [address] [place] [address] Apr, Methamphetamine use disorder, moderate F15.20 ; Anxiety state, unspecified F41.1 and Alcohol use disorder F10.99 [facility] [address] [place] [address] Apr, Alcohol use disorder F10.99 and Methamphetamine use disorder, moderate F15.20 [facility] [address] [place] [address] Mar, Alcohol use disorder F10.99 and Methamphetamine use disorder, moderate F15.20 [place] [address] [place] [address] Mar, Methamphetamine use disorder, moderate F15.20 ; Anxiety state, unspecified F41.1 and Alcohol use disorder F10.99 [place] [address] [place] [phone] Mar, [place] [address] [address] Mar, [place] [address] [address] Apr, [place] [address] [address] Apr, IMMUNIZATIONS No Known Immunizations SOCIAL HISTORY Never Assessed REASON FOR VISIT Brief PLAN OF CARE VITAL SIGNS MEDICATIONS Unknown Medications RESULTS No Results PROCEDURES Procedure Date Ordered Result Body Site Alcohol and/or drug services Apr 13, 2017 INSTRUCTIONS MEDICATIONS ADMINISTERED No Known Medications
--- OUTSIDE RECORDS SUMMARY | 2017-12-04 10:05 | XMS REPORT | Continuity of Care Document ---
Demographics Preferred Language Unknown Marital Status Unknown Orthodox Affiliation Unknown Race Unknown Ethnic Group Unknown Author Author [facility] Organization [facility] Address Unknown Phone Unavailable Allergies There is no data. Medications There is no data. Problems There is no data. Procedures There is no data. Results Test Result Range CBC - 10/01/17 09:55 WHITE BLOOD CELL COUNT 7.9 Thousand/uL 3.8-10.8 RED BLOOD CELL COUNT 4.87 Million/uL 3.80-5.10 HEMOGLOBIN 14.3 g/dL 11.7-15.5 HEMATOCRIT 43.2 % 35.0-45.0 MCV 88.7 fL 80.0-100.0 MCH 29.4 pg 27.0-33.0 MCHC 33.1 g/dL 32.0-36.0 RDW 14.7 % 11.0-15.0 PLATELET COUNT 253 Thousand/uL 140-400 MPV 11.5 fL 7.5-12.5 ABSOLUTE NEUTROPHILS 4195 cells/uL 4812-4398 ABSOLUTE LYMPHOCYTES 2568 cells/uL 850-3900 ABSOLUTE MONOCYTES 719 cells/uL 200-950 ABSOLUTE EOSINOPHILS 332 cells/uL 15-500 ABSOLUTE BASOPHILS 87 cells/uL 0-200 NEUTROPHILS 53.1 % NRG LYMPHOCYTES 32.5 % NRG MONOCYTES 9.1 % NRG EOSINOPHILS 4.2 % NRG BASOPHILS 1.1 % NRG BNP - 10/01/17 09:55 B TYPE NATRIURETIC PEPTIDE (BNP) 13 pg/mL <100 CCP ANTIBODY - 10/22/17 11:09 CYCLIC CITRULLINATED PEPTIDE (CCP) AB (IGG) <16 UNITS NRG Encounters ACCT No. Visit Date/Time Discharge Status Pt. Type Provider Facility Loc./Unit Complaint [id number] 11/12/2017 11:20:00 11/12/2017 23:59:59 CLS Outpatient ERICK GODINEZ [facility] [id number] 10/22/2017 10:20:00 Document Registration [id number] 10/01/2017 09:20:00 Document Registration
--- OUTSIDE RECORDS SUMMARY | 2017-12-04 10:05 | XMS REPORT ---
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 Problem Anxiety state, unspecified F41.1 Active 227960525 Problem Alcohol use disorder F10.99 Active 35621495 ALLERGIES No Information ENCOUNTERS Encounter Location Date Diagnosis [facility] [address] [place] [address] Jul, Methamphetamine use disorder, 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 [facility] [address] [place] [address] Jul, [facility] [address] [place] [phone] [place] [address] Jul, [facility] [address] [place] [address] May, [facility] [address] [place] [address] May, Methamphetamine use disorder, moderate F15.20 and Alcohol use disorder F10.99 [facility] [address] [place] [address] May, Alcohol use disorder F10.99 and Methamphetamine use disorder, moderate F15.20 [facility] [address] [place] [address] May, Methamphetamine use disorder, moderate F15.20 and Alcohol use disorder F10.99 [facility] [address] [place] [address] Apr, Methamphetamine use disorder, moderate F15.20 and Alcohol use disorder F10.99 [facility] [address] [place] [address] [place] [address] Apr, Methamphetamine use disorder, moderate F15.20 ; Anxiety state, unspecified F41.1 and Alcohol use disorder F10.99 [facility] [address] [place] [phone] Apr, Alcohol use disorder F10.99 and Methamphetamine use disorder, moderate F15.20 [facility] [address] [place] [phone] Mar, Alcohol use disorder F10.99 and Methamphetamine use disorder, moderate F15.20 [facility] [address] [place] [id number] [place] [address] Mar, Methamphetamine use disorder, moderate F15.20 ; Anxiety state, unspecified F41.1 and Alcohol use disorder F10.99 [place] [address] [place] [address] Mar, [place] [address] [place] [id number] [place] [address] Mar, [place] [address] [address] Apr, [place] [address] [place] [id number] [place] [address] Apr, IMMUNIZATIONS No Known Immunizations SOCIAL HISTORY Never Assessed REASON FOR VISIT [facility] PLAN OF CARE Activity Details Follow Up 2 - 3 Days Reason: VITAL SIGNS MEDICATIONS Unknown Medications RESULTS No Results PROCEDURES Procedure Date Ordered Result Body Site Psych diagnostic evaluation, new patient Apr 15, 2017 INSTRUCTIONS MEDICATIONS ADMINISTERED No Known Medications
--- OUTSIDE RECORDS SUMMARY | 2017-12-04 10:05 | XMS REPORT ---
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 Problem Anxiety state, unspecified F41.1 Active 318077237 Problem Alcohol use disorder F10.99 Active 97353809 ALLERGIES No Information ENCOUNTERS Encounter Location Date Diagnosis [facility] [address] [place] [address] Jul, Methamphetamine use disorder, 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 [facility] [address] [place] [address] Jul, [facility] [address] [place] [phone] [place] [address] Jul, [facility] [address] [place] [address] May, [facility] [address] [place] [address] May, Methamphetamine use disorder, moderate F15.20 and Alcohol use disorder F10.99 [facility] [address] [place] [address] May, Alcohol use disorder F10.99 and Methamphetamine use disorder, moderate F15.20 [facility] [address] [place] [address] May, Methamphetamine use disorder, moderate F15.20 and Alcohol use disorder F10.99 [facility] [address] [place] [address] Apr, Methamphetamine use disorder, moderate F15.20 and Alcohol use disorder F10.99 [facility] [address] [place] [address] [place] [address] Apr, Methamphetamine use disorder, moderate F15.20 ; Anxiety state, unspecified F41.1 and Alcohol use disorder F10.99 [facility] [address] [place] [phone] Apr, Alcohol use disorder F10.99 and Methamphetamine use disorder, moderate F15.20 [facility] [address] [place] [phone] Mar, Alcohol use disorder F10.99 and Methamphetamine use disorder, moderate F15.20 [facility] [address] [place] [phone] [place] [address] Mar, Methamphetamine use disorder, moderate F15.20 ; Anxiety state, unspecified F41.1 and Alcohol use disorder F10.99 [place] [address] [place] [address] Mar, [place] [address] [place] [phone] [place] [address] Mar, [place] [address] [place] [phone] [place] [phone] Apr, [place] [address] [place] [phone] [place] [address] Apr, IMMUNIZATIONS No Known Immunizations SOCIAL HISTORY Never Assessed REASON FOR VISIT Assessment PLAN OF CARE Activity Details Follow Up 2 - 3 Days Reason: VITAL SIGNS MEDICATIONS Unknown Medications RESULTS No Results PROCEDURES Procedure Date Ordered Result Body Site Psychotherapy, patient &/family, 60 minutes, established patient April 17, 2017 INSTRUCTIONS MEDICATIONS ADMINISTERED No Known Medications
--- OUTSIDE RECORDS SUMMARY | 2017-12-04 10:05 | XMS REPORT ---
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 [facility] [address] [place] [address] Jul, [facility] [address] [place] [id number] [place] [address] Jul, [facility] [address] [place] [address] May, [facility] [address] [place] [address] May, Methamphetamine use disorder, moderate F15.20 and Alcohol use disorder F10.99 [facility] [address] [place] [address] May, Alcohol use disorder F10.99 and Methamphetamine use disorder, moderate F15.20 [facility] [address] [place] [address] May, Methamphetamine use disorder, moderate F15.20 and Alcohol use disorder F10.99 [facility] [address] [place] [address] Apr, Methamphetamine use disorder, moderate F15.20 and Alcohol use disorder F10.99 [facility] [address] [place] [id number] [place] [address] Apr, Methamphetamine use disorder, moderate F15.20 ; Anxiety state, unspecified F41.1 and Alcohol use disorder F10.99 [facility] [address] [place] [phone] Apr, Alcohol use disorder F10.99 and Methamphetamine use disorder, moderate F15.20 [facility] [address] [place] [phone] Mar, Alcohol use disorder F10.99 and Methamphetamine use disorder, moderate F15.20 [place] [address] [place] [address] Mar, Methamphetamine use disorder, moderate F15.20 ; Anxiety state, unspecified F41.1 and Alcohol use disorder F10.99 [place] [address] [place] [address]60[address]- [address]28 Mar, [place] [address] [place] [id number] [place] [address] Mar, [place] [address] [place] [phone] Apr, [place] [address] [address] Apr, IMMUNIZATIONS No Known Immunizations SOCIAL HISTORY Never Assessed REASON FOR VISIT [facility] Intake PLAN OF CARE VITAL SIGNS MEDICATIONS Unknown Medications RESULTS No Results PROCEDURES Procedure Date Ordered Result Body Site Alcohol and/or drug services Apr 13, 2017 INSTRUCTIONS MEDICATIONS ADMINISTERED No Known Medications
--- OUTSIDE RECORDS SUMMARY | 2017-12-04 10:05 | XMS REPORT ---
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 Problem Anxiety state, unspecified F41.1 Active 465073734 Problem Alcohol use disorder F10.99 Active 10882974 ALLERGIES No Information ENCOUNTERS Encounter Location Date [facility] [address] [place] [address] Jul, Methamphetamine use disorder, 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 [facility] [address] [place] [address] Jul, [facility] [address] [place], [place] [id number] [place] [address] Jul, [facility] [address] [place] [address] May, [facility] [address] [place] [address] May, Methamphetamine use disorder, moderate F15.20 and Alcohol use disorder F10.99 [facility] [address] [place] [address] May, Alcohol use disorder F10.99 and Methamphetamine use disorder, moderate F15.20 [facility] [address] [place] [address] May, Methamphetamine use disorder, moderate F15.20 and Alcohol use disorder F10.99 [facility] [address] [place] [address] Apr, Methamphetamine use disorder, moderate F15.20 and Alcohol use disorder F10.99 [facility] [address] [place], [place] [id number] [place] [address] Apr, Methamphetamine use disorder, moderate F15.20 ; Anxiety state, unspecified F41.1 and Alcohol use disorder F10.99 [facility] [address] [place] [address] Apr, Alcohol use disorder F10.99 and Methamphetamine use disorder, moderate F15.20 [facility] [address] [place] [address] Mar, Alcohol use disorder F10.99 and Methamphetamine use disorder, moderate F15.20 [facility] [address] [place] [phone] [place] [address] Mar, Methamphetamine use disorder, moderate F15.20 ; Anxiety state, unspecified F41.1 and Alcohol use disorder F10.99 [place] [address] [place] [address] Mar, [place] [address] [place] [id number] [place] [phone] Mar, [place] [address] [place] 790945- 9020 Apr, [place] [address] [place] [phone] [place] [phone] Apr, IMMUNIZATIONS No Known Immunizations SOCIAL HISTORY Never Assessed REASON FOR VISIT Referred by [facility] for Behavioral Health assessment. PLAN OF CARE Activity Details Follow Up prn Reason: VITAL SIGNS MEDICATIONS Unknown Medications RESULTS No Results PROCEDURES Procedure Date Ordered Result Body Site Psych diagnostic evaluation, new patient Apr 13, 2017 INSTRUCTIONS MEDICATIONS ADMINISTERED No Known Medications
--- NOTE | 2017-12-04 10:39 | ED Upper Extremity ---
General Chief Complaint: Upper Extremity Stated Complaint: R SHOULDER PAIN Nursing Triage Note: PT STATES SHE HURT HER R SHOULDER 1 MONTH AGO, RECIEVED A STEROID SHOT AT THAT TIME. STATES SHE HAS SEEN HER DOC 3-4 TIMES SINCE THEN AND STILL HAS PAIN IN HER SHOULDER AND STATES SHE THINKS IT IS DISLOCATED. STATES SHE HAS FULL RANGE OF MOVEMENT BUT HAS PAIN WITH MOVEMENT. HAS TAKEN NAPROXEN AND TYLENOL FOR PAIN. Nursing Sepsis Screen: No Definite Risk Source: patient Exam Limitations: no limitations History of Present Illness Date Seen by Provider: Dec 04, 2017 Time Seen by Provider: 10:36 Initial Comments To ER with reports of right shoulder pain. This is been ongoing for 1 month. She was trying to get up onto a countertop one month ago and felt a popping sensation in the right shoulder. She then saw her primary care and has seen in 2 -3 times. She received a steroid injection intramuscularly into the left buttock (not into the shoulder joint itself) but she's never had x-rays and she believes it to be dislocated. She has persistent pain. Onset: just prior to arrival Severity: moderate Pain/Injury Location: right shoulder Method of Injury: other Modifying Factors: Worse With Movement Allergies and Home Medications Patient Home Medication List Home Medication List Reviewed: Yes Review of Systems Constitutional: see HPI EENTM: see HPI Respiratory: no symptoms reported Cardiovascular: no symptoms reported Genitourinary: no symptoms reported Musculoskeletal: see HPI Skin: no symptoms reported Psychiatric/Neurological: No Symptoms Reported Past Oizvpdj-Ipiihe-Bpsseu Hx Patient Social History Alcohol Use: Denies Use Recreational Drug Use: No Smoking Status: Current Everyday Smoker 2nd Hand Smoke Exposure: Yes Recent Foreign Travel: No Contact w/Someone Who Travel: No Recent Infectious Disease Expo: No Recent Hopitalizations: No Physical Abuse: No Sexual Abuse: No Mistreated: No Fear: No Seasonal Allergies Seasonal Allergies: No Past Medical History Surgeries: Yes Section, Hysterectomy, Orthopedic Respiratory: No Cardiac: No Neurological: No Genitourinary: No Gastrointestinal: No Musculoskeletal: Yes Degenerate Disk Disease, Arthritis Endocrine: No HEENT: No Cancer: No Psychosocial: No Integumentary: No Blood Disorders: No Physical Exam Vital Signs Vital Signs - First Documented 12/04/17 10:08 Temp 96.6 Pulse 88 Resp 18 B/P (MAP) 139/85 (103) Capillary Refill : Less Than 3 Seconds Height, Weight, BMI Height: 5'5.00" Weight: 219lbs. oz. 99.298976yf; BMI Method:Stated General Appearance: WD/WN, no apparent distress Neck: full range of motion, normal inspection Respiratory: no respiratory distress, no accessory muscle use Shoulder: normal inspection; No deformity, No ecchymosis; limited ROM, pain; No swelling Elbow/Forearm: normal inspection, non-tender Wrist: Yes normal inspection, Yes non-tender Hand: normal inspection, non-tender Neurologic/Psychiatric: alert, normal mood/affect, oriented x 3 Skin: normal color, warm/dry Progress/Results/Core Measures Results/Orders My Orders Orders - MARICRUZ JONES APRN Shoulder, Right, 3 Views (12/04/17 10:33) Vital Signs/I&O 12/04/17 10:08 Temp 96.6 Pulse 88 Resp 18 B/P (MAP) 139/85 (103) Blood Pressure Mean: 103 Departure Impression Primary Impression: Internal derangement of right shoulder Disposition: 01 HOME, SELF-CARE Condition: Stable Departure-Patient Inst. Decision time for Depature: 10:38 Patient Instructions: Rotator Cuff Injury, Shoulder Labral Tear Add. Discharge Instructions: 1. I suspect that your pain represents either a rotator cuff tear or a labrum injury. Follow-up with primary care to discuss obtaining an MRI of the shoulder which will help differentiate the cause of your pain. All discharge instructions reviewed with patient and/or family. Voiced understanding. MARICRUZ JONES APRN Dec 04, 2017 10:39
[2017-12-04 10:56] VITALS: BP 139/85
--- NOTE | 2017-12-04 11:01 | Diagnostic Imaging Report ---
INDICATION: Right shoulder pain x1 month 3 views of the right shoulder show no fracture, dislocation or other acute abnormalities. IMPRESSION: Negative right shoulder Dictated by: Dictated on workstation # [id number]
== END 2017-12-04 10:56 | disposition home or self-care (01) ==
LOC: EDUNIT# 09:56 → ER 09:59
DX: M24.811 Other specific joint derangements of right shoulder, not elsewhere classified (principal); F17.200 Nicotine dependence, unspecified, uncomplicated; Z98.890 Other specified postprocedural states; Z90.710 Acquired absence of both cervix and uterus
CPT/HCPCS: 73030

== ENCOUNTER 2018-03-25 14:42 | Emergency (ER) | payer SELFPAY ==
[~2018-03-25] VITALS: Ht 165.1 cm; Wt 101.2 kg
[2018-03-25] MEDS ORDERED: ASPIRIN 81 MG CHEW (CHILDREN'S ASA) PO ONE (15:00)
[2018-03-25 15:09] LABS: BASOPHILS # (AUTO) 0.1 10^3/uL (0.0-0.1); BASOPHILS % (AUTO) 1 % (0-10); EOSINOPHILS # (AUTO) 0.2 10^3/uL (0.0-0.3); EOSINOPHILS % (AUTO) 2 % (0-10); HEMATOCRIT 42 % (35-52); HEMOGLOBIN 14.2 G/DL (11.5-16.0); LYMPHOCYTES # (AUTO) 2.9 X 10^3 (1.0-4.0); LYMPHOCYTES % (AUTO) 31 % (12-44); MEAN CORPUSCULAR HEMOGLOBIN 30 PG (25-34); MEAN CORPUSCULAR HGB CONC 34 G/DL (32-36); MEAN CORPUSCULAR VOLUME 87 FL (80-99); MEAN PLATELET VOLUME 10.6 FL (7.4-10.4); MONOCYTES # (AUTO) 0.7 X 10^3 (0.0-1.0); MONOCYTES % (AUTO) 7 % (0-12); NEUTROPHILS # (AUTO) 5.6 X 10^3 (1.8-7.8); NEUTROPHILS % (AUTO) 59 % (42-75); PLATELET COUNT 255 10^3/uL (130-400); RED CELL DISTRIBUTION WIDTH 14.9 % (10.0-14.5); WHITE BLOOD COUNT 9.4 10^3/uL (4.3-11.0)
[2018-03-25 15:13] LABS: INR 0.9 (0.8-1.4); PROTHROMBIN TIME PATIENT 12.2 SEC (12.2-14.7)
[2018-03-25] MEDS ORDERED: LIDOCAINE 2% VISCOUS 15 ML UDC PO ONE (15:15)
[2018-03-25] MEDS ORDERED: ANTACID SUSP 30 ML UDC (MYLANTA) PO ONE (15:15)
--- NOTE | 2018-03-25 15:19 | Diagnostic Imaging Report ---
INDICATION: Chest pain. TIME OF EXAM: 03:11 p.m. COMPARISON: No prior studies are available for comparison. FINDINGS: The heart size is normal. The pulmonary vascularity is unremarkable. The lungs are clear. No infiltrate, effusion or pneumothorax is detected. IMPRESSION: No acute cardiopulmonary process is detected. Dictated by: Dictated on workstation # [id number]
[2018-03-25 15:22] LABS: ALANINE AMINOTRANSFERASE 40 U/L (0-55); ALBUMIN 4.1 GM/DL (3.2-4.5); ALKALINE PHOSPHATASE 69 U/L (40-136); BILIRUBIN,TOTAL 0.7 MG/DL (0.1-1.0); BUN/CREATININE RATIO 28; CARBON DIOXIDE 28 MMOL/L (21-32); CHLORIDE 105 MMOL/L (98-107); CREATININE SERUM 0.65 MG/DL (0.60-1.30); GFR ESTIMATED > 60; GLUCOSE 112 MG/DL (70-105); LIPASE 27 U/L (8-78); MAGNESIUM 2.1 MG/DL (1.8-2.4); POTASSIUM 3.7 MMOL/L (3.6-5.0); SODIUM 142 MMOL/L (135-145); TOTAL PROTEIN 7.1 GM/DL (6.4-8.2)
[2018-03-25 15:29] LABS: MYOGLOBIN SERUM 33.6 NG/ML (10.0-92.0)
--- NOTE | 2018-03-25 15:33 | ED Chest Pain ---
General Chief Complaint: Chest Pain Stated Complaint: CHEST PAIN/SOA HEADACHE NAUSEA Nursing Triage Note: PT PRESENTS TO ED WITH COMPLAINTS OF CP X 3 DAYS AND NAZARIO. Nursing Sepsis Screen: No Definite Risk Source: patient Exam Limitations: no limitations History of Present Illness Date Seen by Provider: Mar 25, 2018 Time Seen by Provider: 15:09 Initial Comments Here with central chest pain that she describes as a pressure or ache. Has been going on for the last 3 days and is associated with a headache. Does have nausea but no vomiting. Please that she has had some sweating and feels weak. Does take meloxicam for rheumatoid arthritis but has been out of that for a while. She did take 2 full dose aspirin before coming here today for the chest pain. Admits to overall not feeling well. Denies recent trauma or surgeries. Denies recent long trips or car rides. Timing/Duration: 2-3 days Severity/Quality: moderate, aching, pressure Location: central (she) Radiation: no radiation Prior CP/Workup: no prior cardiac workup Modifying Factors: improves with rest ASA po HEALTH INFORMATION MANAGERS: Yes NTG SL HEALTH INFORMATION MANAGERS: No Associated Symptoms: No abdominal pain, No back pain; diaphoresis; No fatigue; nausea/vomiting, shortness of breath, weakness Allergies and Home Medications Allergies Coded Allergies: No Known Drug Allergies (Unverified , 03/25/18) Home Medications No Active Prescriptions or Reported Meds Patient Home Medication List Home Medication List Reviewed: Yes Review of Systems Review of Systems Constitutional: see HPI; No chills, No fever; weakness EENTM: No Symptoms Reported Respiratory: See HPI; Denies Cough Cardiovascular: See HPI; Denies Edema, Denies Palpitations, Denies Syncope Gastrointestinal: Denies Diarrhea; Nausea; Denies Vomiting Genitourinary: No Symptoms Reported Musculoskeletal: no symptoms reported Skin: no symptoms reported Psychiatric/Neurological: See HPI, Headache; Denies Weakness Endocrine: No Symptoms Reported All Other Systems Reviewed Negative Unless Noted: Yes Past Bvselds-Wrsawq-Vvcuvr Hx Past Med/Social Hx: Reviewed Nursing Past Med/Soc Hx Patient Social History Alcohol Use: Denies Use Recreational Drug Use: No (PAST HX METH, CLEAN 8 MONTHS) Smoking Status: Current Everyday Smoker Type Used: Cigars 2nd Hand Smoke Exposure: Yes Recent Foreign Travel: No Contact w/Someone Who Travel: No Recent Infectious Disease Expo: No Recent Hopitalizations: No Physical Abuse: No Sexual Abuse: No Mistreated: No Fear: No Seasonal Allergies Seasonal Allergies: No Past Medical History Surgeries: Yes Section, Hysterectomy, Orthopedic Respiratory: No Cardiac: No Neurological: No Genitourinary: No Gastrointestinal: No Musculoskeletal: Yes Degenerate Disk Disease, Arthritis, Rheumatoid Arthritis Endocrine: No HEENT: No Cancer: No Psychosocial: No Integumentary: No Blood Disorders: No Family Medical History Reviewed Nursing Family Hx No Pertinent Family Hx Physical Exam Vital Signs Vital Signs - First Documented 03/25/18 14:54 Temp 97.2 Pulse 88 Resp 16 B/P (MAP) 143/76 (98) Pulse Ox 97 Capillary Refill : Less Than 3 Seconds Height, Weight, BMI Height: 5'5.00" Weight: 223lbs. oz. 101.440397oo; BMI Method:Stated General Appearance: No Apparent Distress, WD/WN HEENT: PERRL/EOMI, Pharynx Normal Neck: Non Tender, Supple Respiratory: Lungs Clear, Normal Breath Sounds Cardiovascular: Regular Rate, Rhythm, No Murmur Gastrointestinal: Non Tender, Soft Extremity: Normal Range of Motion, Non Tender Neurologic/Psychiatric: Alert, Oriented x3 Skin: Normal Color, Warm/Dry Progress/Results/Core Measures Results/Orders Lab Results Laboratory Tests Test 03/25/18 14:48 03/25/18 16:15 Range/Units White Blood Count 9.4 4.3-11.0 10^3/uL Red Blood Count 4.81 4.35-5.85 10^6/uL Hemoglobin 14.2 11.5-16.0 G/DL Hematocrit 42 35-52 % Mean Corpuscular Volume 87 80-99 FL Mean Corpuscular Hemoglobin 30 25-34 PG Mean Corpuscular Hemoglobin Concent 34 32-36 G/DL Red Cell Distribution Width 14.9 H 10.0-14.5 % Platelet Count 255 130-400 10^3/uL Mean Platelet Volume 10.6 H 7.4-10.4 FL Neutrophils (%) (Auto) 59 42-75 % Lymphocytes (%) (Auto) 31 12-44 % Monocytes (%) (Auto) 7 0-12 % Eosinophils (%) (Auto) 2 0-10 % Basophils (%) (Auto) 1 0-10 % Neutrophils # (Auto) 5.6 1.8-7.8 X 10^3 Lymphocytes # (Auto) 2.9 1.0-4.0 X 10^3 Monocytes # (Auto) 0.7 0.0-1.0 X 10^3 Eosinophils # (Auto) 0.2 0.0-0.3 10^3/uL Basophils # (Auto) 0.1 0.0-0.1 10^3/uL Prothrombin Time 12.2 12.2-14.7 SEC INR Comment 0.9 0.8-1.4 Activated Partial Thromboplast Time 25 24-35 SEC D-Dimer 0.33 0.00-0.49 UG/ML Sodium Level 142 135-145 MMOL/L Potassium Level 3.7 3.6-5.0 MMOL/L Chloride Level 105 98-107 MMOL/L Carbon Dioxide Level 28 21-32 MMOL/L Anion Gap 9 5-14 MMOL/L Blood Urea Nitrogen 18 7-18 MG/DL Creatinine 0.65 0.60-1.30 MG/DL Estimat Glomerular Filtration Rate > 60 BUN/Creatinine Ratio 28 Glucose Level 112 H 70-105 MG/DL Calcium Level 9.0 8.5-10.1 MG/DL Corrected Calcium 8.9 8.5-10.1 MG/DL Magnesium Level 2.1 1.8-2.4 MG/DL Total Bilirubin 0.7 0.1-1.0 MG/DL Aspartate Amino Transf (AST/SGOT) 20 5-34 U/L Alanine Aminotransferase (ALT/SGPT) 40 0-55 U/L Alkaline Phosphatase 69 40-136 U/L Myoglobin 33.6 10.0-92.0 NG/ML Troponin I < 0.028 <0.028 NG/ML Total Protein 7.1 6.4-8.2 GM/DL Albumin 4.1 3.2-4.5 GM/DL Lipase 27 8-78 U/L Urine Color YELLOW Urine Clarity CLEAR Urine pH 6 5-9 Urine Specific Gould 1.020 1.016-1.022 Urine Protein 1+ H NEGATIVE Urine Glucose (UA) NEGATIVE NEGATIVE Urine Ketones NEGATIVE NEGATIVE Urine Nitrite NEGATIVE NEGATIVE Urine Bilirubin NEGATIVE NEGATIVE Urine Urobilinogen NORMAL NORMAL MG/DL Urine Leukocyte Esterase NEGATIVE NEGATIVE Urine RBC (Auto) NEGATIVE NEGATIVE Urine RBC NONE /HPF Urine WBC RARE /HPF Urine Squamous Epithelial Cells 5-10 /HPF Urine Crystals NONE /LPF Urine Bacteria NEGATIVE /HPF Urine Casts NONE /LPF Urine Mucus SMALL H /LPF Urine Culture Indicated NO Micro Results Microbiology 03/25/18 Influenza Types A,B Antigen (KODI) - Final, Complete My Orders Orders - REYNALDO ASHLEY MD Cbc With Automated Diff (03/25/18 15:00) Magnesium (03/25/18 15:00) Chest 1 View, Ap/Pa Only (03/25/18 15:00) Ekg Tracing (03/25/18 15:00) Cardiac Profile 1 (03/25/18 15:00) Comprehensive Metabolic Panel (03/25/18 15:00) Myoglobin Serum (03/25/18 15:00) Protime With Inr (03/25/18 15:00) Partial Thromboplastin Time (03/25/18 15:00) O2 (03/25/18 15:00) Monitor-Rhythm Ecg Trace Only (03/25/18 15:00) Lipid Panel (03/26/18 06:00) Aspirin Chewable Tablet (Baby Aspirin Ch (03/25/18 15:00) Saline Lock/Iv-Start (03/25/18 15:00) Lipase (03/25/18 15:00) Fibrin Degradation Products (03/25/18 15:00) Lidocaine 2% Viscous 15 Ml (Xylocaine Vi (03/25/18 15:15) Antacid Suspension (Mylanta Suspension (03/25/18 15:15) Ua Culture If Indicated (03/25/18 15:56) Influenza A And B Antigens (03/25/18 15:56) Ketorolac Injection (Toradol Injection) (03/25/18 16:00) Ondansetron Injection (Zofran Injectio (03/25/18 16:00) Famotidine Injection (Pepcid Injection) (03/25/18 16:02) Medications Given in ED Current Medications Medications Dose Ordered Sig/Barb Route Start Time Stop Time Status Last Admin Dose Admin Al Hydrox/Mg Hydrox/Simethicone 30 ml ONCE ONCE PO 03/25/18 15:15 03/25/18 15:16 DC 03/25/18 15:31 30 ML Lidocaine HCl 15 ml ONCE ONCE PO 03/25/18 15:15 03/25/18 15:16 DC 03/25/18 15:31 15 ML Vital Signs/I&O 03/25/18 14:54 Temp 97.2 Pulse 88 Resp 16 B/P (MAP) 143/76 (98) Pulse Ox 97 Blood Pressure Mean: 98 Progress Progress Note : Progress Note Seen and evaluated. IV, labs, EKG and chest x-ray ordered. Patient has her to had aspirin so we will hold. GI cocktail ordered. Monitor patient. 1600: Pepcid 20 mg IV and Toradol 30 mg IV ordered. We will check influenza screen and UA. Evaluation thus far does not show any concerns for cardiac problems or embolus. Seems to be more GI related but we did discuss with her about follow- up and the need for further evaluation including stress test as needed. We will see what the other labs show and see if she is better after meds. Monitor patient. 1705: Overall feeling better but did have an incident in which her children causes her anxiety to increase in that caused some of her symptoms again. She thinks that it's anxiety. She does report that she used to be on Valium and Percocet but she is off of those now due to having to stay [facility]. I discussed with her that there are probably better options and she needs to follow up with her Dr. for further evaluation. We will write some hydroxyzine and she is appreciative of that. Discharged home with return precautions. Patient verbalize understanding instructions and agreement with plan. Initial ECG Impression Date: Mar 25, 2018 Initial ECG Impression Time: 14:45 Initial ECG Rate: 84 Initial ECG Rhythm: Normal Sinus Comment Sinus rhythm with normal axis. No evidence of ST elevation VT. No previous available for comparison. Interpreted by me. Diagnostic Imaging Diagonstic Imaging: Xray Plain Films/CT/US/NM/MRI: chest Comments NAME: [facility] REC#: [id number] PT STATUS: REG ER : 1970 PHYSICIAN: REYNALDO ASHLEY MD ADMIT DATE: 03/25/18/ER Draft Date of Exam:03/25/18 CHEST 1 VIEW, AP/PA ONLY INDICATION: Chest pain. TIME OF EXAM: 03:11 p.m. COMPARISON: No prior studies are available for comparison. FINDINGS: The heart size is normal. The pulmonary vascularity is unremarkable. The lungs are clear. No infiltrate, effusion or pneumothorax is detected. IMPRESSION: No acute cardiopulmonary process is detected. Dictated on workstation # [id number] Dict: 03/25/18 1515 Trans: 03/25/18 1519 [id number] Interpreted by: FRANKY DE LEON MD Electronically signed by: Departure Impression Primary Impression: Chest pain Qualified Codes: R07.9 - Chest pain, unspecified Additional Impressions: Epigastric pain Anxiety Disposition: 01 HOME, SELF-CARE Condition: Stable Departure-Patient Inst. Decision time for Depature: 16:42 Referrals: EBONY YANG DO Patient Instructions: Chest Pain (DC), Acid Reflux (Gastroesophageal Reflux Disease), Adult (DC) Add. Discharge Instructions: All discharge instructions reviewed with patient and/or family. Voiced understanding. Take medications as directed. Follow-up with your Dr. in a few days for recheck and further evaluation. Return for worse pain, vomiting, weakness, breathing problems or other concerns as needed. Eat a light diet for the next few days and then advance as tolerated. You may take [id number] Pepcid or the generic famotidine 20 mg twice daily for the next 7 days and then daily thereafter as needed for stomach upset. You may take Tylenol, 1000 mg every 8 hours as needed for pain. Discussed with your DrAndry about continuing your other pain medicine. You should talk with her Dr. about further evaluation including stress test and/or upper endoscopy as indicated. Scripts Hydroxyzine Pamoate (Hydroxyzine Pamoate) 25 Mg Capsule 25 MG PO Q8H, #20 CAP 0 Refills Prov: REYNALDO ASHLEY MD 03/25/18 Copy Copies To 1: EBONY YANG TIMOTHY D MD Mar 25, 2018 15:33
[2018-03-25] MEDS ORDERED: KETOROLAC 30 MG/ML VIAL IVP STA (16:00)
[2018-03-25] MEDS ORDERED: ONDANSETRON 4 MG/2 ML (SDV) Z0FRAN IVP ONE (16:00)
[2018-03-25] MEDS ORDERED: FAMOTIDINE 20MG/2ML IV (PEPCID) IV STA (16:02)
[2018-03-25 16:24] LABS: BILIRUBIN,URINE NEGATIVE (NEGATIVE); CLARITY,URINE CLEAR; COLOR,URINE YELLOW; GLUCOSE, URINE (UA) NEGATIVE (NEGATIVE); KETONES,URINE NEGATIVE (NEGATIVE); LEUKOCYTE ESTERASE ,URINE NEGATIVE (NEGATIVE); NITRITE,URINE NEGATIVE (NEGATIVE); PH,URINE 6 (5-9); PROTEIN,URINE 1+ (NEGATIVE); UROBILINOGEN,URINE NORMAL (NORMAL)
[2018-03-25 16:31] LABS: BACTERIA,URINE NEGATIVE /HPF; WBC,URINE RARE /HPF
[2018-03-25] MEDS ORDERED: HYDR-3781 PO (17:13)
[2018-03-25 17:25] VITALS: BP 130/74
== END 2018-03-25 17:25 | disposition home or self-care (01) ==
LOC: EDUNIT# 14:42 → ER 14:44
DX: R07.89 Other chest pain (principal); R10.13 Epigastric pain; F41.9 Anxiety disorder, unspecified; M06.9 Rheumatoid arthritis, unspecified; F17.290 Nicotine dependence, other tobacco product, uncomplicated; Z98.890 Other specified postprocedural states; Z90.710 Acquired absence of both cervix and uterus
CPT/HCPCS: 36415; 71045; 80053; 81000; 83690; 83735; 83874; 84484; 85025; 85379; 85610; 85730; 87804; 93005; 93041

== ENCOUNTER 2018-11-27 15:37 | Emergency (ER) | payer SELFPAY ==
[~2018-11-27] VITALS: Ht 165 cm; Wt 91.0 kg
[~2018-11-27 15:37] MED LIST: HYDR-3781 PO
[2018-11-27] MEDS ORDERED: KETOROLAC 30 MG/ML VIAL IM PRN (16:15)
[2018-11-27] MEDS ORDERED: ORPHENADRINE 60 MG/2 ML (NORFLEX) AMP IM ONE (16:15)
[2018-11-27] MEDS ORDERED: PRD20T PO (16:16)
[2018-11-27] MEDS ORDERED: METH-313 PO (16:16)
--- NOTE | 2018-11-27 16:17 | ED Back Pain ---
General Chief Complaint: Back Problems Stated Complaint: BACK PAIN Nursing Triage Note: PT AMBULATE TO TRIAGE WITH C/O BACK PAIN STARTING 3 DAYS AGO. PT STATES HAS CHRONIC BACK PAIN AND HAS BEEN OUT OF HER PERCOCET FOR OVER A YEAR SINCE MOVING TO [place]. PT STATES HAS BEEN SEEN AT [facility] AND GIVEN STEROID SHOT AND TORADOL THAT HAS NOT REDUCED PAIN. Nursing Sepsis Screen: No Definite Risk Source of Information: Patient Exam Limitations: No Limitations History of Present Illness Date Seen by Provider: Nov 27, 2018 Time Seen by Provider: 16:14 Initial Comments ER with reports of right low back pain that radiates down the right leg all the way to her foot. She's had this issue for a long time but believes the weather change recently with a cold from moving through has flared up the back pain. No fevers or chills no loss of bowel or bladder control. Location: Lumbar Spine Timing/Duration: 2-3 Days Severity: Moderate Pain/Injury Location: Back Radiation: Buttocks Method of Injury: Fall Associated Symptoms: denies symptoms Allergies and Home Medications Allergies Coded Allergies: No Known Drug Allergies (Unverified , 03/25/18) Home Medications Hydroxyzine Pamoate 25 Mg Capsule, 25 MG PO Q8H Prescribed by: REYNALDO ASHLEY on 03/25/18 7340 Patient Home Medication List Home Medication List Reviewed: Yes Review of Systems Constitutional: see HPI EENTM: see HPI Respiratory: no symptoms reported Cardiovascular: no symptoms reported Genitourinary: no symptoms reported Musculoskeletal: see HPI, back pain Skin: no symptoms reported Psychiatric/Neurological: No Symptoms Reported Past Scvygnq-Yteguu-Eypugk Hx Patient Social History Alcohol Use: Denies Use Recreational Drug Use: No Smoking Status: Current Everyday Smoker Type Used: Cigars 2nd Hand Smoke Exposure: Yes Recent Foreign Travel: No Contact w/Someone Who Travel: No Recent Infectious Disease Expo: No Recent Hopitalizations: No Physical Abuse: No Sexual Abuse: No Mistreated: No Fear: No Seasonal Allergies Seasonal Allergies: No Past Medical History Surgeries: Yes Section, Hysterectomy, Orthopedic Respiratory: No Cardiac: No Neurological: No Genitourinary: No Gastrointestinal: No Musculoskeletal: Yes Degenerate Disk Disease, Arthritis, Rheumatoid Arthritis Endocrine: No HEENT: No Cancer: No Psychosocial: No Integumentary: No Blood Disorders: No Family Medical History No Pertinent Family Hx Physical Exam Vital Signs Vital Signs - First Documented 11/27/18 15:44 Temp 36.8 Pulse 87 Resp 18 B/P (MAP) 154/82 (106) Pulse Ox 95 O2 Delivery Room Air Capillary Refill : Less Than 3 Seconds Height, Weight, BMI Height: 5'5.00" Weight: 223lbs. oz. 101.788857qr; 33.00 BMI Method:Stated General Appearance: No Apparent Distress, WD/WN HEENT: PERRL/EOMI Neck: Full Range of Motion, Normal Inspection Respiratory: No Accessory Muscle Use, No Respiratory Distress Gastrointestinal: Non Tender, Soft Neurologic/Psychiatric: Alert, Oriented x3 Skin: Normal Color, Warm/Dry Progress/Results/Core Measures Results/Orders My Orders Orders - MARICRUZ JONES APRN Ketorolac Injection (Toradol Injection) (11/27/18 16:15) Orphenadrine Injection (Norflex Injectio (11/27/18 16:15) Vital Signs/I&O 11/27/18 15:44 Temp 36.8 Pulse 87 Resp 18 B/P (MAP) 154/82 (106) Pulse Ox 95 O2 Delivery Room Air Blood Pressure Mean: 106 Departure Impression Primary Impression: Back pain Qualified Codes: M54.41 - Lumbago with sciatica, right side; G89.29 - Other chronic pain Additional Impression: Lumbar radiculopathy Disposition: 01 HOME, SELF-CARE Condition: Stable Departure-Patient Inst. Decision time for Depature: 16:15 Referrals: [facility] (PCP/Family) Primary Care Physician Patient Instructions: Radiculopathy (DC) Add. Discharge Instructions: 1. Steroids and muscle relaxers as directed 2. Follow-up with your doctor next week All discharge instructions reviewed with patient and/or family. Voiced understanding. Scripts Methocarbamol (Robaxin-750) 750 Mg Tablet 750 MG PO Q4H PRN for PAIN-MODERATE, #20 TAB Prov: MARICRUZ JONES APRN 11/27/18 Prednisone (Prednisone) 20 Mg Tab 40 MG PO DAILY, #8 TAB 0 Refills Prov: MARICRUZ JONES APRN 11/27/18 Work/School Note: Work Release Form Date Seen in the Emergency Department: Nov 27, 2018 Return to Work: Nov 29, 2018 MARICRUZ JONES APRN Nov 27, 2018 16:17
[2018-11-27 16:38] VITALS: BP 139/78
== END 2018-11-27 16:38 | disposition home or self-care (01) ==
LOC: EDUNIT# 15:37 → ER 15:39
DX: M54.16 Radiculopathy, lumbar region (principal); M06.9 Rheumatoid arthritis, unspecified; F17.290 Nicotine dependence, other tobacco product, uncomplicated; Z90.710 Acquired absence of both cervix and uterus; W19.XXXA Unspecified fall, initial encounter
CPT/HCPCS: 96372; 99284

== ENCOUNTER 2018-12-12 00:36 | Emergency (ER) | payer SELFPAY ==
[~2018-12-12] VITALS: Ht 165.1 cm; Wt 100.0 kg
[~2018-12-12 00:36] MED LIST changes: +METH-313 PO; +PRD20T PO
[2018-12-12] MEDS ORDERED: ORPHENADRINE 60 MG/2 ML (NORFLEX) AMP IM ONE (01:00)
[2018-12-12] MEDS ORDERED: KETOROLAC 30 MG/ML VIAL IM ONE (01:00)
--- NOTE | 2018-12-12 01:11 | ED Back Pain ---
General Chief Complaint: Back Problems Stated Complaint: BACK PAIN Nursing Triage Note: AMBULATORY TO ED ROOM 7 WITH C/O BACK PAIN. STATES SHE HAS CHRONIC BACK PAIN FROM DEGENERATIVE DISK DISEASE AND WAS SEEN HERE IN ER LAST WEEK AND GIVEN "TORADOL AND MUSCLE RELAXER". STATES SHE TOOK 2 LYRICA TABS, 4 IBUPROFEN TABS, 1 MOBIC TAB, AND 2 TYLENOL TABS AT 1600 PRIOR TO GOING TO WORK. Nursing Sepsis Screen: No Definite Risk Source of Information: Patient Exam Limitations: No Limitations History of Present Illness Date Seen by Provider: Dec 12, 2018 Time Seen by Provider: 00:40 Initial Comments This 48-year-old woman presents to the emergency room with complaints of exa cerbation of chronic back pain. She reports history of arthritis, degenerative joint disease, and a bulging disks. She has had an MRI previously at a different facility. She was seen here 2 weeks ago and treated acutely in the ER and prescribed prednisone and Robaxin. Symptoms have since rebounded. She has radicular symptoms that run down the right leg and to the right foot. She denies any true weakness, bowel or bladder dysfunction, or saddle paresthesia. She took medications yesterday afternoon as described above. She was previously prescribed Percocet but has not taken that in about a year. Allergies and Home Medications Allergies Coded Allergies: No Known Drug Allergies (Unverified , 03/25/18) Home Medications Cyclobenzaprine HCl 10 Mg Tablet, 10 MG PO Q8H PRN for SPASMS Prescribed by: JESUS BUSTOS on 12/12/18112 Hydroxyzine Pamoate 25 Mg Capsule, 25 MG PO Q8H Prescribed by: REYNALDO ASHLEY on 03/25/18 1713 Methocarbamol 750 Mg Tablet, 750 MG PO Q4H PRN for PAIN-MODERATE Prescribed by: MARICRUZ JONES on 11/27/18 161 Prednisone 20 Mg Tab, 40 MG PO DAILY Prescribed by: MARICRUZ JONES on 11/27/181615 Prednisone 20 Mg Tab, 20 MG PO DAILY Prescribed by: JESUS BUSTOS on 12/12/18 011 Tramadol HCl 50 Mg Tablet, 50 MG PO Q6H PRN for PAIN-BREAKTHROUGH Prescribed by: JESUS BUSTOS on 12/12/18 011 Patient Home Medication List Home Medication List Reviewed: Yes Review of Systems Constitutional: no symptoms reported EENTM: no symptoms reported Respiratory: no symptoms reported Cardiovascular: no symptoms reported Genitourinary: no symptoms reported : No Musculoskeletal: see HPI Skin: no symptoms reported Psychiatric/Neurological: See HPI Past Wmmvdng-Uavlni-Rdzccs Hx Past Med/Social Hx: Reviewed Nursing Past Med/Soc Hx Patient Social History Alcohol Use: Denies Use Recreational Drug Use: No Type Used: Cigars 2nd Hand Smoke Exposure: Yes Recent Foreign Travel: No Contact w/Someone Who Travel: No Recent Infectious Disease Expo: No Recent Hopitalizations: No Physical Abuse: No Sexual Abuse: No Mistreated: No Fear: No Immunizations Up To Date Tetanus Booster (TDap): Unknown Seasonal Allergies Seasonal Allergies: No Past Medical History Surgeries: Yes Section, Hysterectomy, Orthopedic Respiratory: No Cardiac: No Neurological: No Genitourinary: No Gastrointestinal: No Musculoskeletal: Yes Degenerate Disk Disease, Arthritis, Rheumatoid Arthritis (possibly) Endocrine: No HEENT: No Cancer: No Psychosocial: No Integumentary: No Blood Disorders: No Family Medical History No Pertinent Family Hx Physical Exam Vital Signs Vital Signs - First Documented 12/12/18 00:44 Temp 35.9 Pulse 82 Resp 18 B/P (MAP) 130/88 (102) O2 Delivery Room Air Capillary Refill : Less Than 3 Seconds Height, Weight, BMI Height: 5'5.00" Weight: 223lbs. oz. 101.614131po; 36.00 BMI Method:Stated General Appearance: WD/WN, Mild Distress HEENT: PERRL/EOMI, Normal ENT Inspection Neck: Normal Inspection Cardiovascular: Regular Rate, Rhythm, No Edema, No Murmur Respiratory: Lungs Clear, Normal Breath Sounds, No Accessory Muscle Use Gastrointestinal: Non Tender, Soft Back: Other (mild tenderness in the musculature of the right lumbar back. 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 Norm as Tested Skin: Normal Color, Warm/Dry Progress/Results/Core Measures Results/Orders My Orders Orders - JESUS ADAMS MD Ketorolac Injection (Toradol Injection) (12/12/18 01:00) Orphenadrine Injection (Norflex Injectio (12/12/18 01:00) Tramadol Tablet (Ultram Tablet) (12/12/18 01:15) Medications Given in ED Current Medications Medications Dose Ordered Sig/Barb Route Start Time Stop Time Status Last Admin Dose Admin Ketorolac Tromethamine 30 mg ONCE ONCE IM 12/12/18 01:00 12/12/18 01:01 DC 12/12/18 01:06 30 MG Orphenadrine Citrate 60 mg ONCE ONCE IM 12/12/18 01:00 12/12/18 01:01 DC 12/12/18 01:06 60 MG Vital Signs/I&O 12/12/18 00:44 Temp 35.9 Pulse 82 Resp 18 B/P (MAP) 130/88 (102) O2 Delivery Room Air Blood Pressure Mean: 102 Progress Progress Note : Progress Note Patient was treated with Toradol and Norflex. See prescription medications. Encouraged weight loss, stretching, exercise, and smoking cessation for long- term improvement of this condition. Departure Impression Primary Impression: Exacerbation of chronic back pain Disposition: HOME, SELF-CARE Condition: Improved Departure-Patient Inst. Decision time for Depature: 01:09 Referrals: [facility] (PCP/Family) Primary Care Physician Patient Instructions: Back Stretches Standing or Seated, Back Stretches on Floor, Hamstring Stretches, Low Back Pain in Adults, Radiculopathy (DC) Add. Discharge Instructions: Drink plenty of clear liquids. For primary pain control you may take ibuprofen up to 600 mg every 6 hours as needed or meloxicam. Do not take both ibuprofen and meloxicam. Take ibuprofen with food or milk to avoid stomach upset. You may safely add Tylenol (acetaminophen) up to 1000 mg every 6 hours as needed to your meloxicam or ibuprofen. If you have pain not controlled by these medications, then add Ultram (tramadol) as prescribed. Taking prednisone for the next few days may help reduce inflammation and speed recovery. Application of gentle heat should help relax muscles. If you have muscle tension not improved with gentle stretching and gentle heat, you may use the cyclobenzaprine as prescribed. For long-term improvement of your back issues, smoking cessation, weight loss, stretching, and regular exercise will be most helpful. Follow-up with your primary care provider soon as possible. All discharge instructions reviewed with patient and/or family. Voiced understanding. Scripts Cyclobenzaprine HCl (Cyclobenzaprine HCl) 10 Mg Tablet 10 MG PO Q8H PRN for SPASMS, #10 TAB 0 Refills Prov: JESUS ADAMS MD 12/12/18 Tramadol HCl (Ultram) 50 Mg Tablet 50 MG PO Q6H PRN for PAIN-BREAKTHROUGH, #10 TAB Prov: JESUS ADAMS MD 12/12/18 Prednisone (Prednisone) 20 Mg Tab 20 MG PO DAILY, #4 TAB 0 Refills Prov: JESUS ADAMS MD 12/12/18 Copy Copies To 1: EBONY YANG JOSHUA T MD Dec 12, 2018 01:11
[2018-12-12] MEDS ORDERED: TRAM-42 PO (01:13)
[2018-12-12] MEDS ORDERED: CYCL10TA9 PO (01:13)
[2018-12-12] MEDS ORDERED: PRD20T PO (01:13)
[2018-12-12 01:21] VITALS: BP 129/85
== END 2018-12-12 01:22 | disposition home or self-care (01) ==
LOC: EDUNIT# 00:36 → ER 00:38
DX: M54.9 Dorsalgia, unspecified (principal); G89.29 Other chronic pain; M06.9 Rheumatoid arthritis, unspecified; Z77.22 Contact with and (suspected) exposure to environmental tobacco smoke (acute) (chronic); Z90.710 Acquired absence of both cervix and uterus
CPT/HCPCS: 96372; 99284

== ENCOUNTER → 2019-01-05 | Outpatient (CLI) | payer OTHER ==
[~2019-01-05] MED LIST changes: +CYCL10TA9 PO; +TRAM-42 PO
--- NOTE | 2019-01-05 13:51 | Diagnostic Imaging Report ---
PROCEDURE: MR imaging cervical spine without contrast. TECHNIQUE: Multiplanar, multisequence MR imaging of the cervical spine was performed without contrast. INDICATION: Neck pain. FINDINGS: There is straightening of the normal cervical lordosis. The vertebral body heights are well-maintained. Prevertebral soft tissues are within normal limits. The posterior fossa is unremarkable. The visualized portions of the spinal cord are normal signal intensity and morphology. At C2-C3, there is mild annular bulging with slight effacement of ventral thecal sac and mild spinal stenosis. At C3-C4, there is broad-based annular bulging and bilateral uncovertebral joint hypertrophy. There is moderate spinal stenosis or at least moderate bilateral neural foraminal encroachment. At C4-C5, there is loss of disc height and signal intensity. There is annular bulging and bilateral uncovertebral joint hypertrophy. There is waposclh-fv-wecjok spinal stenosis with daynsgrs-ad-jhsdly bilateral neural foraminal encroachment. At C5-C6, there is broad-based annular bulging in the endplates. There is broad-based annular bulging and bilateral uncovertebral joint hypertrophy, left greater than right. There is rcosktmy-uo-dbtehs spinal stenosis. There is fzuijkik-wy-ouyzbz left and tiht-gq-uygkdoih right neural foraminal encroachment. At C6-C7, there is broad-based annular bulging and bilateral uncovertebral joint hypertrophy. There is moderate spinal stenosis and cwnzgxyo-tk-fkulll bilateral neural foraminal encroachment. At C7-T1, there is annular bulging and some minimal uncovertebral joint hypertrophy. There is slight effacement of ventral thecal sac and minimal neural foraminal encroachment. IMPRESSION: Moderate cervical spondylosis and multilevel degenerative disc disease as detailed above. Dictated by: Dictated on workstation # [id number]
--- NOTE | 2019-01-05 14:51 | Diagnostic Imaging Report ---
PROCEDURE: MRI lumbar spine. TECHNIQUE: Multiplanar, multisequence MRI of the lumbar spine was performed without contrast. INDICATION: Back pain. COMPARISON: No prior MRI of the lumbar spine is available for comparison. FINDINGS: Curvature and alignment of the lumbar spine is normal. Vertebral body heights are maintained. The marrow signal intensity is unremarkable. No geographic marrow lesion or acute compression fracture is detected. There is degenerative disc disease throughout the lumbar spine with disc space narrowing and desiccation. Conus appears unremarkable at the L1 level. T12-L1: Central canal is patent. The neural foramina appear patent. L1-L2: Broad-based disc/osteophyte complex indents the ventral thecal sac. There is ligamentous thickening. Mild central canal narrowing is noted. No significant neural foraminal narrowing is detected. L2-L3: Broad-based disc/osteophyte complex and ligamentous thickening produces moderate central canal stenosis. There is also significant narrowing of bilateral lateral recesses as well as moderate bilateral neural foraminal stenosis. L3-L4: Broad-based disc/osteophyte complex and ligamentous thickening result in moderate central canal stenosis. There is significant narrowing of bilateral lateral recesses as well as moderate right and mild left neural foraminal stenosis. L4-L5: Broad-based disc/osteophyte complex and ligamentous thickening results in significant central canal stenosis. There is also significant bilateral lateral recess stenosis and moderate bilateral neural foraminal stenosis. L5-S1: Hypertrophic facet changes are noted. There is broad-based disc/osteophyte complex resulting in ckkj-xn-pvkwldxw central canal narrowing. There is moderate bilateral neural foraminal stenosis. The paraspinous tissues are unremarkable. IMPRESSION: Multilevel lumbar spondylosis with multilevel central canal, lateral recess and neural foraminal stenosis described level by level above. No acute compression fracture is detected. Dictated by: Dictated on workstation # [id number]
== END ==
LOC: RAD 12:32
PROVIDERS: ATTEND Physician Assistant
DX: M54.41 Lumbago with sciatica, right side (principal); M47.816 Spondylosis without myelopathy or radiculopathy, lumbar region; M48.07 Spinal stenosis, lumbosacral region; M25.78 Osteophyte, vertebrae; M50.30 Other cervical disc degeneration, unspecified cervical region; M47.812 Spondylosis without myelopathy or radiculopathy, cervical region; M50.21 Other cervical disc displacement, high cervical region
CPT/HCPCS: 72141; 72148

== ENCOUNTER → 2019-12-12 | Outpatient (CLI) | payer OTHER ==
--- NOTE | 2019-12-12 11:55 | Diagnostic Imaging Report ---
INDICATION: Right shoulder pain. TIME OF EXAM: 11:24 AM. TECHNIQUE: Two views of the right shoulder were obtained. FINDINGS: The glenohumeral and acromioclavicular alignment is normal. The acromiohumeral space is normal. No fracture or dislocation is identified. IMPRESSION: No acute bony abnormality is detected. Dictated by: Dictated on workstation # [id number]
--- NOTE | 2019-12-12 11:56 | Diagnostic Imaging Report ---
INDICATION: Left knee pain. TIME OF EXAM: 11:28 AM. TECHNIQUE: Two views of the left knee were obtained. FINDINGS: The alignment is normal. The joint spaces are fairly well maintained. The articular surfaces are smooth. No fracture, dislocation, or effusion is identified. Very mild patellofemoral degenerative change is noted. IMPRESSION: Mild degenerative change. No acute bony abnormality is detected. Dictated by: Dictated on workstation # [id number]
--- NOTE | 2019-12-12 12:04 | Diagnostic Imaging Report ---
INDICATION: Right hand pain. TIME OF EXAM: 11:21 AM. TECHNIQUE: Two views of the right hand were obtained. FINDINGS: The metacarpals are intact. The phalanges appear to be intact. No fractures are seen. The carpus is unremarkable. The joint spaces are maintained. IMPRESSION: No acute bony abnormality is detected. Dictated by: Dictated on workstation # [id number]
== END ==
LOC: RAD 10:47
PROVIDERS: ATTEND Anesthesiology Pain Medicine
DX: Z02.71 Encounter for disability determination (principal); M17.9 Osteoarthritis of knee, unspecified; M79.641 Pain in right hand; M25.511 Pain in right shoulder
CPT/HCPCS: 73030; 73120; 73560

== ENCOUNTER 2021-08-29 15:43 | Emergency (ER) | payer OTHER ==
[~2021-08-29] VITALS: Ht 165 cm; Wt 90.7 kg
[~2021-08-29 15:43] MED LIST changes: +CYCL10TA25 PO; -CYCL10TA9 PO
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
[2021-08-29 17:50] LABS: BILIRUBIN,URINE 1+ (NEGATIVE); CLARITY,URINE CLEAR; COLOR,URINE ORANGE; GLUCOSE, URINE (UA) NEGATIVE (NEGATIVE); KETONES,URINE TRACE (NEGATIVE); LEUKOCYTE ESTERASE ,URINE NEGATIVE (NEGATIVE); NITRITE,URINE NEGATIVE (NEGATIVE); PH,URINE 5.5 (5-9); PROTEIN,URINE 1+ (NEGATIVE)
[2021-08-29 17:57] LABS: BASOPHILS % (AUTO) 1 % (0-10); EOSINOPHILS # (AUTO) 0.1 10^3/uL (0.0-0.3); EOSINOPHILS % (AUTO) 2 % (0-10); HEMATOCRIT 42 % (35-52); HEMOGLOBIN 13.7 g/dL (11.5-16.0); LYMPHOCYTES # (AUTO) 2.2 10^3/uL (1.0-4.0); LYMPHOCYTES % (AUTO) 34 % (12-44); MEAN CORPUSCULAR HEMOGLOBIN 28 pg (25-34); MEAN CORPUSCULAR HGB CONC 33 g/dL (32-36); MEAN CORPUSCULAR VOLUME 86 fL (80-99); MEAN PLATELET VOLUME 10.8 fL (9.0-12.2); MONOCYTES # (AUTO) 0.5 10^3/uL (0.0-1.0); MONOCYTES % (AUTO) 8 % (0-12); NEUTROPHILS # (AUTO) 3.5 10^3/uL (1.8-7.8); NEUTROPHILS % (AUTO) 55 % (42-75); PLATELET COUNT 221 10^3/uL (130-400); WHITE BLOOD COUNT 6.5 10^3/uL (4.3-11.0)
[2021-08-29 17:59] LABS: BACTERIA,URINE LARGE /HPF
[2021-08-29 18:03] LABS: AMPHETAMINE SCREEN, URINE POSITIVE (NEGATIVE); BARBITURATE SCREEN URINE NEGATIVE (NEGATIVE); BENZODIAZEPINES SCREEN URINE NEGATIVE (NEGATIVE); CANNABINOID SCREEN, URINE NEGATIVE (NEGATIVE); COCAINE SCREEN URINE NEGATIVE (NEGATIVE); METHADONE STAT NEGATIVE (NEGATIVE); OPIATE SCREEN URINE NEGATIVE (NEGATIVE); OXYCODONE STAT NEGATIVE (NEGATIVE); PROPOXYPHENE STAT NEGATIVE (NEGATIVE); TRICYCLIC ANTIDEPRESSANTS SCRE NEGATIVE (NEGATIVE)
[2021-08-29 18:43] LABS: ACETAMINOPHEN < 10 UG/ML (10-30); ALANINE AMINOTRANSFERASE 62 U/L (0-55); ALBUMIN 4.2 GM/DL (3.2-4.5); ALKALINE PHOSPHATASE 75 U/L (40-136); BILIRUBIN,TOTAL 0.9 MG/DL (0.1-1.0); BUN/CREATININE RATIO 36; CALCIUM 9.3 MG/DL (8.5-10.1); CARBON DIOXIDE 19 MMOL/L (21-32); CHLORIDE 102 MMOL/L (98-107); CREATININE SERUM 0.89 MG/DL (0.60-1.30); GFR ESTIMATED 78; GLUCOSE 140 MG/DL (70-105); POTASSIUM 3.5 MMOL/L (3.6-5.0); SALICYLATE < 5.0 MG/DL (5.0-20.0); SODIUM 137 MMOL/L (135-145); TOTAL PROTEIN 7.2 GM/DL (6.4-8.2)
[2021-08-29] MEDS ORDERED: cefTRIAXone 1 GM PRE-MIX 50 ML IV ONE ×2 (19:15→20:00)
[2021-08-29] MEDS ORDERED: NS IV 1000 ML 1,000 ML IV ONE ×2 (19:15→19:45)
[2021-08-30] MEDS ORDERED: NICOTINE 21 MG (NICODERM) PATCH TD ONE (06:30)
[2021-08-30 06:40] VITALS: BP 117/59
== END 2021-08-30 06:40 ==
LOC: EDUNIT# 15:43 → ER 15:45
DX: U07.1 COVID-19 (principal); F41.9 Anxiety disorder, unspecified; F32.A Depression, unspecified; R45.851 Suicidal ideations; N39.0 Urinary tract infection, site not specified; Z28.310 Unvaccinated for COVID-19
CPT/HCPCS: 80053; 80306; 81000; 84443; 85025; 87088; 87636; 93005; 93041; 99284; G0480 ×3; 36415; 80320; 80329